=== PATIENT | female | born 1945 | race Caucasian/White ===

== ENCOUNTER 2021-12-28 13:29 | Inpatient (IN) | payer MEDICARE, MEDICAID, SELFPAY ==
[2021-12-28] VITALS (29 sets, daily range): BP systolic 57–117; BP diastolic 32–84; PULSE 58–130; RESP 11–23; TEMP 33.4–37.1; O2SAT 98–100; BMI 25.3
--- NOTE | ~2021-12-28 | CT_ITS ---
EXAMINATION: CT abdomen pelvis w con DATE: 12/28/2021 16:52 INDICATION: Diarrhea. TECHNIQUE: Computed tomography (CT) of the abdomen and pelvis was performed with 100 mL Omnipaque 350 intravenous contrast. Automated exposure control and iterative reconstruction technique were employe d. The dose-length product was 605.33 mGy-cm. COMPARISON: None. FINDINGS: The visualized portions of the lung bases demonstrate a small right pleural effusion. There is mild dependent atelectasis. The heart size is normal. There are coronary artery calcifications. T here are changes of coronary artery bypass grafting. There is a small sliding hiatal hernia. There is wall thickening of the distal esophagus. There is periportal edema in the liver. The gallbladder is distended and contains gallstones. The spleen is normal. There is widespread stranding of the intra-a bdominal fat and body wall fat, consistent with edema. The pancreas and adrenal glands are normal. Th ere are cysts in the kidneys measuring up to 2.2 cm in the left. The appendix is normal. There is wal l thickening of the transverse from the proximal transverse colon to the rectum, consistent with coli tis. There are no pathologically enlarged lymph nodes. There is a small volume of ascites. There is c alcified atherosclerosis of the aorta and many of the other arteries. There is severe stenosis of jarret iac axis. There is total occlusion of proximal superior mesenteric artery with reconstitution. There is moderate stenosis of the renal arteries. There is no significant stenosis of inferior mesenteric a rtery. There are old bilateral rib fractures. There is severe lumbar spondylosis and moderate thoraci c spondylosis. IMPRESSION: 1. Severe colitis from proximal transverse colon to the rectum. 2. 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 No signifi cant stenosis of inferior mesenteric artery. 3. Small volume of ascites. 4. Small right pleural effusion. 5. Small sliding hiatal hernia. Thickening of the distal esophagus may be edema or esophagitis. 6. Cholelithiasis. Gallbladder distention may be secondary to fasting or acute cholecystitis. Reviewed, dictated and finalized at location A. IMPRESSION: 1. Severe colitis from proximal transverse colon to the rectum. 2. Superior severe stenosis of celiac axis. Total occlusion of superior mesente linda artery. No significant stenosis of inferior mesenteric artery. 3. Small volume of ascites. 4. Small right pleural effusion. 5. Small sliding hiatal hernia. Thickening of the distal esophagus may be edema or esophagitis. 6. Cholelithiasis. Gallbladder distention may be secondary to fasting or acute cholecystitis.
--- NOTE | ~2021-12-28 | XR_ITS ---
EXAMINATION: XR chest port-a-cath/central DATE: 12/28/2021 18:47 INDICATION: Central line placement. TECHNIQUE: A single frontal view of the chest was obtained. COMPARISON: Chest single view at 1:50 PM, CT abdomen and pelvis 12/28/2021 FINDINGS: There is eventration of anterior right hemidiaphragm. There is a small right pleural effusi on. There is mild atelectasis in the midlung zones. No pneumothorax. The heart size is normal. Median sternotomy wires and mediastinal surgical clips are seen, likely from prior coronary artery bypass g rafting. A right internal jugular central venous catheter is seen with tip in the superior vena cava. 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 There are old healed bilateral rib fracture s. IMPRESSION: 1. Central line tip in superior vena cava. 2. Small right pleural effusion. 3. Mild atelectasis in the midlung zones. Reviewed, dictated and finalized at location A.
--- NOTE | ~2021-12-28 | XR_ITS ---
EXAMINATION: XR foot RT min 3V DATE: 12/28/2021 13:59 INDICATION: Right foot wound. TECHNIQUE: 3 views of right foot were obtained. COMPARISON: None. FINDINGS: There is old healed fracture deformity of neck of fifth metatarsal. Head of third metatarsa l is small, which may be an old healed fracture or surgical change. Head of third proximal phalanx is small, which may be an old healed fracture or surgical change. There is mild osteoarthritis of many of the interphalangeal joints and midfoot joints. There are 2 screws in medial malleolus. IMPRESSION: 1. Polyarticular osteoarthritis. Reviewed, dictated and finalized at location A.
--- NOTE | ~2021-12-28 | US_ITS ---
EXAMINATION: US arterial duplex LE DATE: 12/29/2021 08:25 INDICATION: Peripheral arterial disease. Nonhealing right foot wound. TECHNIQUE: Multiple grayscale and Doppler ultrasound images of the lower limb arteries were obtained. COMPARISON: None FINDINGS: Peak systolic velocity is 292 cm/s in right common femoral artery, 141 cm/s in proximal sup erficial femoral artery, 40 cm/s in profunda femoris, 37 cm/s in mid superficial femoral artery, 21 c m/s in distal superficial femoral artery, 16 cm/s in popliteal artery, and 31 cm/s in posterior tibia l artery. Flow is not detected in dorsalis pedis. Peak systolic velocity is 100 cm/s in left common femoral artery, 342 cm/s in proximal superficial fe moral artery, 86 cm/s in profunda femoris, 33 cm/s in mid superficial femoral artery, 44 cm/s in dist al superficial femoral artery, and 32 cm/s in popliteal artery. Arterial flow is not detected in post erior tibial artery or dorsalis pedis. IMPRESSION: 1. Increased velocity gradients involving right common femoral artery, right superficial femoral reji ry, and right profunda femoris, consistent with arterial occlusive disease. 2. Arterial flow not detected in right dorsalis pedis. 3. Increased velocity gradients in left superficial femoral artery, consistent with arterial occlusiv e disease. 4. Arterial flow not detected in left posterior tibial artery or dorsalis pedis. Reviewed, dictated and finalized at location A. IMPRESSION: 1. Increased velocity gradients involving right common femoral artery, right suggs perficial femoral artery, and right profunda femoris, consistent with arterial occlusive disease. 2. Arterial flow not detected in right dorsalis pedis. 3. Increased velocity gradients in left superficial femoral artery, consistent with arterial occlusive disease. 4. Arterial flow not detected in left posterior tibial artery or dorsalis pedis .
--- NOTE | ~2021-12-28 | CT_ITS ---
EXAMINATION: CT brain wo con DATE: 12/28/2021 16:52 INDICATION: Diarrhea. Weakness. Lactic acidosis. TECHNIQUE: Computed tomography (CT) of the head was performed without intravenous contrast. The dose- length product was 605.33 mGy-cm. Automated exposure control and iterative reconstruction technique w ere employed. COMPARISON: None FINDINGS: Chronic left temporal lobe infarction. Chronic right parietal-temporal lobe infarction with encephalomalacia. Generalized atrophy. No ventriculomegaly or midline shift. Basilar cisterns are pa tent. There are scattered moderate periventricular and subcortical white matter changes, most likely related to small vessel ischemic disease (microangiopathy). There is intracranial atherosclerosis. Th ere is a calcified extra-axial mass of the right frontal region measuring 1.8 x 0.9 cm, consistent wi th meningioma. Paranasal sinuses and mastoids are pneumatized. No depressed skull fractures. No acute infarction, hemorrhage or mass. IMPRESSION: 1. No acute intracranial abnormality. 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 3: Calcified extra-axial mass right frontal region, consistent with meningioma. 4: Chronic age-related findings. Reviewed, dictated and finalized at location B. IMPRESSION: 1. No acute intracranial abnormality. 2: Chronic bilateral infarctions involving the right parietal and bilateral tem poral lobes with associated encephalomalacia. 3: Calcified extra-axial mass right frontal region, consistent with meningioma. 4: Chronic age-related findings.
--- NOTE | ~2021-12-28 | XR_ITS ---
XR chest 1V portable 12/28/2021 13:59 Indication: Weakness. Procedure: AP portable chest Comparison: No prior studies for comparison. Findings: Status post median sternotomy for CABG. Osteopenia. Heart size normal. There is atheroscler osis of the aorta. No focal air space disease, pulmonary edema, pleural effusion or suspected pneumot horax. Impression: 1: No acute cardiopulmonary disease. Reviewed, dictated and finalized at location B. Impression: 1: No acute cardiopulmonary disease.
--- NOTE | ~2021-12-28 | XR_ITS ---
EXAMINATION: XR chest 1V portable DATE: 01/01/2022 08:48 INDICATION: Hypoxia TECHNIQUE: frontal view of the chest was obtained. COMPARISON: Chest radiograph dated 12/28/21 FINDINGS: Gradient of hazy airspace opacity throughout the right hemithorax and in the left lower lung zone wit h basilar predominance and obscuration of the diaphragm consistent with small left and moderate-sized right posterior layering pleural effusions. Increased interstitial pattern in the left mid to lower lung zone consistent with mild pulmonary edema. Consolidation at the bilateral lung bases which could represent associated atelectasis or pneumonia. No pneumothorax. Heart size is normal. Median sternot devonte wires and mediastinal surgical clips are seen, likely from prior coronary artery bypass grafting. Right internal jugular central venous catheter with distal tip at the caudal superior vena cava. The re is overriding of a chronic left clavicle fracture, unclear whether nonunited old malunited. There is callus formation about healing nondisplaced right seventh and eighth rib fractures. IMPRESSION: 1. Basilar predominant bilateral lung disease consistent with combination of pulmonary edema and atel ectasis although pneumonia not excludable. 2. Moderate-sized right and small left posteriorly layering pleural effusions. Reviewed, dictated and finalized at location A. IMPRESSION: 1. Basilar predominant bilateral lung disease consistent with combination of pu lmonary edema and atelectasis although pneumonia not excludable. 2. Moderate-sized right and small left posteriorly layering pleural effusions.
--- NOTE | 2021-12-28 13:45 | ECG_ITS ---
Measurements Intervals [place] Rate: 57 P: IN: 0 QRS: 79 QRSD: 155 T: 180 QT: 512 QTc: 501 Interpretive Statements ATRIAL FIBRILLATIONI WITH SLOW VENTRICULAR RESPONSE VENTRICULAR PREMATURE COMPLEX RIGHT BUNDLE BRANCH BLOCK LOW VOLTAGE- LIMB LEADS BASELINE ARTIFACT- V6 ABNORMAL ECG NO PREVIOUS ECG AVAILABLE FOR COMPARISON Electronically Signed On 12-28-2021 15:44:42 CDT by Floyd Valera D.O.
--- NOTE | 2021-12-28 14:19 | PC.NURSE ---
lidia hugger and fluid warmer applied to pt at this time.
[2021-12-28] MEDS: SODIUM CHLORIDE 0.9% IV 1,000 ML 999 ML IV CONT ×2 (14:44→14:45)
--- NOTE | 2021-12-28 14:46 | PC.NURSE ---
new temp arthur cath placed. scant amount of urine came out at this time.
[2021-12-28 14:48] LABS: Basophils Absolute Auto 0.1 K/mm3 (0.0-0.1); Basophils Percent Auto 0.3 % (0.2-1.2); Eosinophils Percent Auto 0.2 % (0-4.4); Hematocrit 31.8 % (37.0-47.0); Hemoglobin 9.9 g/dL (12.0-15.0); Immature Granulocyte Absolute 0.92 K/mm3 (0.00-0.031); Lymphocytes Percent Auto 7.4 % (18.3-44.2); Mean Corpuscular HGB Conc 31.1 g/dl (32-36); Mean Corpuscular Volume 93.3 fl (80-100); Mean Platelet Volume 11.1 fl (7.4-10.4); Monocytes Absolute Auto 0.7 K/mm3 (0.1-0.6); Monocytes Percent Auto 3.1 % (2.6-8.5); Neutrophils Absolute Auto 19.6 K/mm3 (1.3-6.7); Nucleated Red Blood Cells Perc 0.1 % (0.0-0.2); Platelet Count Result 312 k/mm3 (150-375); Red Blood Count 3.41 M/mm3 (4.2-5.4); Red Cell Distribution Width 18.7 % (11.5-14.5); White Blood Count 23.1 K/mm3 (4.5-10.0)
[2021-12-28 14:58] LABS: Glucose Point of Care 172 mg/dl (65-105)
[2021-12-28 14:58] LABS: INR 1.3; Platelet Estimate Adequate (Adequate); Prothrombin Time 15.8 Seconds (11.1-14.7)
[2021-12-28 14:59] LABS: Burr Cells 1+ (NORMAL); Ovalocytes 1+ (NORMAL); Partial Thromboplastin Time 29.8 SECONDS (22.3-36.8); Schistocytes None Seen (NORMAL)
[2021-12-28] MEDS: SODIUM CHLORIDE 0.9% IV 500 ML 999 ML IV CONT (15:00)
[2021-12-28 15:02] LABS: Lactic Acid Reflex 4.9 mmol/L (0.7-2.0)
[2021-12-28 15:03] LABS: Alanine Aminotransferase 16 U/L (6-35); Albumin Level 1.6 g/dL (3.5-5.1); Alkaline Phosphatase 67 U/L (38-126); Anion Gap 7 mmol/L (8-16); Aspartate Amino Transferase 17 U/L (14-36); Bilirubin,Total 0.2 mg/dL (0.2-1.3); Blood Urea Nitrogen 29 mg/dL (7-17); CRP 3.3 mg/dL (<1.0); Calcium 7.1 mg/dL (8.4-10.2); Carbon Dioxide 17 mmol/L (22-30); Chloride 118 mmol/L (98-107); Estimated CRCL calculation 39 ml/min; Estimated Glomerular Filt Rate 54; Glucose 182 mg/dL (65-110); Lipase 18 U/L (23-300); Potassium 3.2 mmol/L (3.4-5.0); Sodium 142 mmol/L (137-145)
[2021-12-28 15:12] LABS: Troponin I 0.012 ng/mL (0.000-0.034)
[2021-12-28 15:18] LABS: Appearance Urine Cloudy (Clear); Bilirubin Urine 1+ (Negative); Blood Urine 3+ (Negative); Color Urine Yellow (Yellow); Glucose Urine UA Negative (Negative); Ketones Urine Trace mg/dL (Negative); Leukocyte Esterase Ur 1+ LEU/UL (Negative); Nitrate Urine Negative (Negative); Protein Urine 3+ mg/dL (Negative); Urobilinogen Urine 0.2 mg/dL (<2.0); pH Urine 5.5 (5.0-9.0)
[2021-12-28 15:25] LABS: Amorphous Sediment Urine Few; Bacteria Urine 1+ /hpf; Hyaline Casts Urine 20-29 /lpf; Mucus Urine Moderate /lpf; RBC Urine >75 /hpf (0-2); Squamous Epithelial Cell Urine Moderate /hpf (Few); WBC Urine >75 /hpf
[2021-12-28] MEDS: SODIUM CHLORIDE 0.9% IV 1,000 ML 150 ML IV CONT (15:25)
[2021-12-28 15:26] LABS: Add Urine Microscopic? YES; SARS-CoV-2 RNA PCR Negative
[2021-12-28] MEDS: DOPamine 400 MG/D5W 250 ML 400 MG/250 ML BAG 5.18 MG IV CONT (15:43)
[2021-12-28 16:22] LABS: Toxigenic C. Diff POSITIVE (NEGATIVE)
--- NOTE | 2021-12-28 17:10 | PC.NURSE ---
Pt sons at bedside at this time, Dr. Frazier discussed care of pt with them. They have decided to proceed with central line.
[2021-12-28 17:45] LABS: Reflex Lactic Acid Yes or No Add Lactic
[2021-12-28 19:06] LABS: Lactic Acid 2.5 mmol/L (0.7-2.0)
[2021-12-28] MEDS: NOREPINEPHRINE 8 MG/D5W 250 ML 8 MG/250 ML BAG 9.38 MG IV CONT (19:24)
--- NOTE | 2021-12-28 20:25 | PM.IMHP ---
H&P: HPI History of Present Illness Date/Time: 12/28/21 1830 Chief Complaint: Diarrhea Narrative: This is a 76-year-old female patient who comes [place] [facility] with complaints of [place]. [place] [facility] [place] she had stool cultures obtained on 11/13/2021 due to her diarrhea. After reviewing her information from the [place] [facility] [place], it was noted that patient has failure to thrive. Today the patient was found with low blood pressure. She has decreased oral intake and weight loss. The patient also was recently treated with antibiotics at [facility] for UTI. It looks like it may have been in October. Her white blood cell Count was noted to be 23.1 today with Her H&H is 9.9 and 31.8. Her lactic was 4.9 and has come down to 2.5. Glucose is 172 GFR is noted to be 54. Lipase is normal C reactive protein is 3.3. Urine was found be cloudy 3+ protein, 3+ blood, urine bilirubin 1+, leukocyte esterase 1+, rbc's greater than 75, wbc's greater than 75, moderate amount of a squamous epithelial cells. Urine bacteria is +1. She was negative for COVID and was positive for C diff. patient was given IV fluids, dopamine, Zosyn, Levophed, and vancomycin. A central line was placed in the emergency room as the patient has sepsis. Chest x-ray was read as central line tip in superior vena cava. Small right pleural effusion. Mild atelectasis in the mid lung zone. Abdominal pelvis CT was read as the following 1. Severe colitis from proximal transverse colon to the rectum. 2. 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 No significant stenosis of inferior mesenteric artery. 3. Small volume of ascites. 4. Small right pleural effusion. 5. Small sliding hiatal hernia. Thickening of the distal esophagus may be edema or esophagitis. 6. Cholelithiasis. Gallbladder distention may be secondary to fasting or acute cholecystitis. Head CT was read as no acute intracranial abnormality. 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 Calcified extra-axial mass right frontal region consistent with meningioma. Chronic age-related findings. The right lower extremity has exposed bone and Achilles tendon. Her foot x-ray was read as poly articular osteoarthritis. There are 2 screws in medial malleolus. Patient has muscle wasting to the right lower extremity. Chest x-ray was read as no acute cardiopulmonary disease. Surgery has been consulted for right lower extremity wound. Geological Sample Tester has been consulted and agrees to admission to ICU. Blood cultures are pending. The patient is under a warming blanket. The patient is being admitted to inpatient status to ICU on the date of service as 12/28/2021. Review of Systems Review of Systems: The patient is unable to answer questions and is moaning out at times. All systems reviewed & are unremarkable except as noted in HPI and below Constitutional: Constitutional: Reports as per HPI and Reports no additional constitutional complaints Eyes: Eyes: Reports as per HPI and Reports no additional eye complaints ENT: Reports system reviewed and no additional complaints, except as documented and Reports Normal hearing present Cardiovascular: Cardiovascular: Reports no additional cardiovascular complaints Respiratory: Respiratory: Reports no additional respiratory complaints and Reports no additional respiratory complaints Gastrointestinal: Gastrointestinal: Reports as per HPI and Reports no additional gastrointestinal complaints Musculoskeletal: Musculoskeletal: Reports no additional musculoskeletal complaints Integumentary/Breasts: Skin/Breast: Reports system reviewed and no additional complaints, except as docu and Reports as per HPI Neurologic: Reports system reviewed and no additional complaints, except as documented, Reports as per HPI and Reports Normal hearing present Psychiatric: Psychiatric:
--- NOTE | 2021-12-28 20:51 | ADMGEN ---
This patient, Acacia Turner, was admitted to Intensive Care Unit-7 at 1943. Patient/family oriented to hospital policies and general routines including ID bracelet, bed and alarms, visiting hours, pain management, procedures, bathroom and other care routines, personal items, smoking policy, room service/diet, and visiting hours. Information on how to activate the Rapid Response Team has been discussed. Patient/Family are encouraged to report perceived risks to care and to ask questions if they do not understand what they are told or what they should do.
[2021-12-28] MEDS: CENTRAL LINE FLUSH 10 ML IV PUSH (21:06)
--- NOTE | 2021-12-28 21:48 | ED.GENADULT ---
HPI - General Adult General Chief complaint: Altered Mental Status Stated complaint: altered LOC Time Seen by Provider: 12/28/21 13:38 Source: family (over the phone), EMS and RN notes reviewed Mode of arrival: EMS Limitations: altered mental status and clinical condition History of Present Illness HPI narrative: This is a 76 year old female with history of dementia, atrial fibrillation, chronic ulcers who presents for evaluation of hypotension and unresponsiveness. EMS reports they were called to intermediate for possible cardiac arrest. It is reported that patient was being lifted into bed and she went unresponsive. They believe she may have stopped breathing for 30 seconds. It does not sound as if CPR was started. On EMS arrival, patient was responsive to pain and breathing. They also states that patient had large episode of during during this time. She was hypotensive with BP in 60s and they started her on IV fluids. EMS has given patient 300 ml fluid so far. Patient's son states that patient has nonhealing wound to right posterior lower leg for a couple of months. She has been admitted to [facility] for IV antibiotics and her last hospitalization was 3 weeks ago. Both sons report they do not wish for patient to be intubated or CPR performed. Related Data Home Medications Medication Instructions Recorded Confirmed amiodarone 200 mg tablet mg 12/28/21 ascorbic acid (vitamin C) 500 mg 500 mg PO BID 12/28/21 12/28/21 tablet (Vitamin C) cholecalciferol (vitamin D3) 10 10 mcg PO DAILY 12/28/21 12/28/21 mcg (400 unit) capsule (Vitamin D3) clopidogrel 75 mg tablet 75 mg PO DAILY 12/28/21 12/28/21 metoprolol tartrate 25 mg tablet 25 mg PO BID 12/28/21 12/28/21 metronidazole 500 mg tablet 500 mg PO Q8H 12/28/21 12/28/21 potassium chloride 20 mEq 20 meq PO DAILY 12/28/21 12/28/21 tablet,extended release Allergies Allergy/AdvReac Type Severity Reaction Status Date / Time No Known Allergies Allergy Verified 12/28/21 15:17 Review of Systems Review of Systems: ROS unobtainable: Yes unobtainable due to medical condition and unobtainable due to mental status PMFSH Past Medical History Medical History Anxiety Atrial fibrillation Dementia Diabetes mellitus HTN (hypertension), malignant Surgical History Surgical History S/P ORIF (open reduction internal fixation) fracture right ankle Family History Family History Other Unknown family medical history Social History Social History (Updated 12/28/21 @ 21:23 by Noris Camp NP) Social History: The patient is from [facility]. Her son Morgan and Fernando Cortez are listed as her power game trapper. The patient is listed as a modified code. She is and retired. Smoking status unknown. Code status modified DNI. Alcohol intake: unknown Substance use: unknown Spiritual care concerns: No Exam Const: General: ill appearing acutely Limitations: altered mental status HENMT: Head: normal to inspection Face and sinus: normal facial exam Mouth: Yes dry mucous membranes Other: endentulous Eyes: Pupils: Equal, round and reactive pupils present EOM: EOMs intact bilaterally Resp: Effort & Inspection: normal respiratory effort Auscultation: clear to auscultation bilaterally Cardio: Rate: regular rate Rhythm: abnormal rhythm Heart sounds: no murmurs GI: GI Palp: Yes Soft to palpation, No Tenderness to palpation present (GI), No Guarding due to palpation present (GI) and No Rigid due to palpation Auscultation: normal bowel sounds Other: large amount of diarrhea in diaper Skin: Wounds: wounds noted Other: there is small wound to left hip, 3 cm no drainage there is large approximately 20 cm wound to right posterior lower leg with exposed achil
[2021-12-28] MEDS: metroNIDAZOLE 500 MG/ISO 100ML 500 MG/100 ML BAG 100 MG IVPB (22:02)
[2021-12-28] MEDS: PANTOPRAZOLE SODIUM IV 40 MG VIAL IV PUSH (22:03)
[2021-12-28] MEDS: DIGOXIN INJ 250 MCG/ML 2 ML AMP (*BKC) 500 MCG IV PUSH (22:07)
[2021-12-28 23:15] LABS: Lactic Acid Reflex 2.1 mmol/L (0.7-2.0)
[2021-12-29] VITALS (36 sets, daily range): BP systolic 81–137; BP diastolic 46–96; PULSE 75–112; RESP 12–20; TEMP 35.2–36.6; O2SAT 98–100
[2021-12-29] MEDS: ALBUMIN HUMAN 25% 25 GM/100 ML 100 ML IVPB ×4 (00:35→17:31)
[2021-12-29] MEDS: INSULIN ASPART (*BKC) 100 UNITS/ML SUB-Q ×4 (00:35→17:34)
[2021-12-29 01:09] LABS: Glucose Point of Care 222 mg/dl (65-105)
[2021-12-29] MEDS: SODIUM BICARBONATE 8.4% 50 MEQ/50 ML SYRINGE IV PUSH (01:21)
[2021-12-29] MEDS: SODIUM BICARBONATE 8.4% 150 MEQ in DEXTROSE 5% 1,000 ML 950 ML 100 MEQ IV CONT ×2 (02:04→12:29)
[2021-12-29] MEDS: KCL 40 MEQ/WATER 100 ML 100 ML 25 ML IVPB (02:04)
[2021-12-29] MEDS: NOREPINEPHRINE 8 MG/D5W 250 ML 8 MG/250 ML BAG 37.5 MG IV CONT (02:05)
[2021-12-29] MEDS: CENTRAL LINE FLUSH 10 ML IV PUSH ×4 (04:40→21:41)
[2021-12-29] MEDS: metroNIDAZOLE 500 MG/ISO 100ML 500 MG/100 ML BAG 100 MG IVPB ×3 (05:56→21:39)
[2021-12-29 06:00] LABS: Hematocrit 31.4 % (37.0-47.0); Hemoglobin 9.9 g/dL (12.0-15.0); Mean Corpuscular HGB Conc 31.5 g/dl (32-36); Mean Corpuscular Hemoglobin 28.9 pg (26-34); Mean Corpuscular Volume 91.8 fl (80-100); Mean Platelet Volume 11.2 fl (7.4-10.4); Platelet Count Result 390 k/mm3 (150-375); Red Blood Count 3.42 M/mm3 (4.2-5.4); Red Cell Distribution Width 19.2 % (11.5-14.5); White Blood Count 32.3 K/mm3 (4.5-10.0)
[2021-12-29 06:07] LABS: Lactic Acid Reflex 1.5 mmol/L (0.7-2.0)
[2021-12-29 06:08] LABS: Alanine Aminotransferase 13 U/L (6-35); Alkaline Phosphatase 70 U/L (38-126); Anion Gap 7 mmol/L (8-16); Aspartate Amino Transferase 19 U/L (14-36); Bilirubin,Total 0.4 mg/dL (0.2-1.3); Blood Urea Nitrogen 28 mg/dL (7-17); Calcium 7.1 mg/dL (8.4-10.2); Carbon Dioxide 19 mmol/L (22-30); Chloride 115 mmol/L (98-107); Estimated CRCL calculation 43 ml/min; Estimated Glomerular Filt Rate > 60; Glucose 314 mg/dL (65-110); Potassium 3.3 mmol/L (3.4-5.0); Sodium 141 mmol/L (137-145)
[2021-12-29 07:03] LABS: Platelet Estimate Increased (Adequate)
[2021-12-29 07:05] LABS: Band Neutrophils Percent 24 % (0-6); Lymphocytes Absolute Manual 0.64 K/mm3 (1.1-4.5); Lymphocytes Percent Manual 2 % (18-44); Neutrophils Absolute Manual 31.65 K/mm3 (1.7-7.2); Neutrophils Percent Manual 74 % (46-73)
[2021-12-29 07:06] LABS: Anisocytosis 1+ (NORMAL)
[2021-12-29 07:08] LABS: Burr Cells 1+ (NORMAL); Schistocytes None Seen (NORMAL)
[2021-12-29 07:16] LABS: Hemoglobin A1C 5.2 % (<5.7)
[2021-12-29 07:53] LABS: Free T4 Free Thyroxine Reflex 2.27 ng/dL (0.78-2.19)
[2021-12-29] MEDS: ENOXAPARIN 40 MG/0.4 ML SYRINGE SUB-Q (08:47)
[2021-12-29] MEDS: PANTOPRAZOLE SODIUM IV 40 MG VIAL IV PUSH ×2 (08:47→21:42)
--- NOTE | 2021-12-29 09:02 | PM.CNGS ---
Assessment and Plan Assessment and plan (1) Septic shock due to Clostridioides difficile: Code(s): A41.4 - Sepsis due to anaerobes; R65.21 - Severe sepsis with septic shock Status: Acute Assessment and Plan: cont supportive care per ICU team, abx to treat severe CDiff infection, serial exams, pt is a poor surgical candidate History of Present Illness Consult details Consult date: 12/29/21 Reason for consult: abdominal pain Requesting physician: Keyona Bagley DO Narrative: The pt is a 76 y/o F c multiple med issues presenting from [facility] in septic shock. Pt is very lethargic and confused and all history obtained via chart. Pt apparently was treated for UTI at OSH is the last few mos. Pt noted to have worsening MS at [facility]. Pt c/o abd pain and diarrhea over last wk. Pt found to be quite hypotensive. Review of Systems Review of Systems: ROS unobtainable: Yes unobtainable due to mental status PMFSH Past Medical History Medical History Anxiety Atrial fibrillation Dementia Diabetes mellitus HTN (hypertension), malignant Surgical History Surgical History S/P ORIF (open reduction internal fixation) fracture right ankle Family History Family History Other Unknown family medical history Social History Social History Social History: The patient is from [facility]. Her son Morgan and Fernando Cortez are listed as her power deputy commonwealth's attorney. The patient is listed as a modified code. She is and retired. Smoking status unknown. Code status modified DNI. Alcohol intake: unknown Substance use: unknown Spiritual care concerns: No Meds Home Medications and Allergies Home Medications Medication Instructions Recorded Confirmed Type amiodarone 200 mg tablet 200 mg PO DAILY 12/28/21 12/29/21 History ascorbic acid (vitamin C) 500 mg 500 mg PO BID 12/28/21 12/28/21 History tablet (Vitamin C) cholecalciferol (vitamin D3) 10 50 mcg PO DAILY 12/28/21 12/29/21 History mcg (400 unit) capsule (Vitamin D3) clopidogrel 75 mg tablet 75 mg PO DAILY 12/28/21 12/28/21 History metoprolol tartrate 25 mg tablet 25 mg PO BID 12/28/21 12/28/21 History metronidazole 500 mg tablet 500 mg PO Q8H 12/28/21 12/28/21 History potassium chloride 20 mEq 20 meq PO DAILY 12/28/21 12/28/21 History tablet,extended release Lactobacillus acidophilus 200 mg PO BID 12/29/21 12/29/21 History aspirin 81 mg tablet 81 mg PO DAILY 12/29/21 12/29/21 History Allergies Allergy/AdvReac Type Severity Reaction Status Date / Time No Known Allergies Allergy Verified 12/28/21 15:17 Vital Signs Vital Signs - 24 hr 12/28/21 13:28 12/28/21 14:19 12/28/21 13:45 Temperature 34.5 C L 33.4 C L Pulse Rate 66 64 Respiratory Rate 23 H 15 Blood Pressure 57/36 L 63/41 L Pulse Oximetry 100 98 Oxygen Delivery Room Air 12/28/21 14:40 12/28/21 14:15 12/28/21 14:51 Temperature 33.9 C L Pulse Rate 59 L 64 58 L Respiratory Rate 18 18 Blood Pressure 84/48 L 74/47 L Pulse Oximetry 100 100 Oxygen Delivery 12/28/21 14:30 12/28/21 14:00 12/28/21 15:43 Temperature Pulse Rate 73 67 68 Respiratory Rate 20 18 Blood Pressure 109/56 L 101/45 L 65/32 L Pulse Oximetry 100 100 Oxygen Delivery 12/28/21 15:51 12/28/21 15:53 12/28/21 15:58 Temperature 34.7 C L Pulse Rate 69 Respiratory Rate 17 Blood Pressure 63/37 L 63/37 L 62/48 L Pulse Oximetry 100 Oxygen Delivery 12/28/21 16:07 12/28/21 16:24 12/28/21 17:23 Temperature 34.9 C L 35.1 C L Pulse Rate 79 103 H 130 H Respiratory Rate 13 11 L Blood Pressure 62/48 L 97/68 L Pulse Oximetry 100 100 Oxygen Delivery 12/28/21 15:16 12/28/21 16:31 12/28/21 17:16 Temperature 34.5 C L 35.2 C L 35.8 C L Pulse Ra
[2021-12-29 10:21] LABS: Magnesium 1.8 mg/dL (1.6-2.3)
[2021-12-29] MEDS: NOREPINEPHRINE 8 MG/D5W 250 ML 8 MG/250 ML BAG 26.25 MG IV CONT (10:25)
[2021-12-29 13:01] LABS: Glucose Point of Care 307 mg/dl (65-105)
--- NOTE | 2021-12-29 13:37 | WPDCNINT ---
Assessment and Plan Assessment and plan (1) Septic shock: Code(s): A41.9 - Sepsis, unspecified organism; R65.21 - Severe sepsis with septic shock Status: Acute Assessment and Plan: Patient presented with altered mental status, hypotension, likely related to C diff colitis, UTI -patient was adequately fluid-resuscitated in the ER, right IJ central line was inserted -patient remains on Levophed , maintain MAP > 65 mmHg -continue maintenance IV fluids, currently on sodium bicarbonate infusion, will continue -lactic acid has normalized -continue Flagyl, cefepime and vancomycin -blood and urine cultures have been obtained and pending (2) UTI (urinary tract infection): Code(s): N39.0 - Urinary tract infection, site not specified Status: Acute Assessment and Plan: Urine cultures have been obtained and pending, continue antibiotics as above (3) C. difficile colitis: Code(s): A04.72 - Enterocolitis due to Clostridium difficile, not specified as recurrent Status: Acute Assessment and Plan: Continue Flagyl, May need to drop an NG tube and start p.o. vancomycin (4) Dementia: Code(s): F03.90 - Unspecified dementia, unspecified severity, without behavioral disturbance, psychotic disturbance, mood disturbance, and anxiety Status: Acute Assessment and Plan: Discussed with 2 sons at bedside, they do agree that patient has severe dementia, status stated that she was admitted [facility] of couple of months ago for her lower extremity wound, doctors over there were talking about amputation, she may not be a candidate according the doctors. The doctors at [facility] did discuss with the sons regarding hospice care, also discussed with them regarding hospice care and the open to meet with the hospice nurse on 12/30/2021 or 12/31/2021 The sons also mentioned that the patient has had decreased oral intake due to her dementia. (5) Diabetes mellitus: Code(s): E11.9 - Type 2 diabetes mellitus without complications Status: Acute Assessment and Plan: Continue Accu-Cheks and sliding scale insulin (6) Wound of lower extremity: Code(s): S81.809A - Unspecified open wound, unspecified lower leg, initial encounter Status: Acute Assessment and Plan: Wounds been consulted -says he also consulted for the right lower extremity wound (7) HTN (hypertension), malignant: Code(s): I10 - Essential (primary) hypertension Status: Acute Assessment and Plan: Hold all antihypertensives as patient is on pressors (8) Atrial fibrillation: Code(s): I48.91 - Unspecified atrial fibrillation Status: Acute Assessment and Plan: Currently rate controlled, if she goes into AFib RVR will start amiodarone infusion Plan DVT prophylaxis: Lovenox Stress ulcer prophylaxis: Protonix Nutrition: NPO for now Discuss with 2 sons at bedside, updated them with patient's condition and plan of care. I discussed with them regarding her colitis, urinary tract infection, has septic shock and that she is requiring high dose of Levophed. They are willing to meet with hospice nurses on 12/30/2021 or 12/31/2021. Code Status: Do not resuscitate, do not intubate, okay for vasopressors central line Critical Care Time Spent: 49 minutes Due to a high probability of clinically significant, life threatening deterioration, the patient required my highest level of preparedness to intervene emergently and I personally spent this critical care time directly and personally managing the patient. This critical care time included obtaining a history; examining the patient; pulse oximetry; ordering and review of studies; arranging urgent treatment with development of a management plan; evaluation of patient's response to treatment; frequent reassessment; and discussions with other providers. It was exclusive of separately billable procedures and treating othe
--- NOTE | 2021-12-29 17:03 | PM.IMPN ---
Progress Note: A&P Assessment and Plan (1) Septic shock: Code(s): A41.9 - Sepsis, unspecified organism; R65.21 - Severe sepsis with septic shock Status: Acute Assessment and Plan: Appreciate critical care management, severe, secondary to C diff colitis Current we on Levophed, Flagyl, cefepime, vancomycin Blood and urine cultures pending IV fluids with bicarb on board (2) UTI (urinary tract infection): Code(s): N39.0 - Urinary tract infection, site not specified Status: Acute Assessment and Plan: Urine cultures have been obtained and pending, continue antibiotics as above (3) C. difficile colitis: Code(s): A04.72 - Enterocolitis due to Clostridium difficile, not specified as recurrent Status: Acute Assessment and Plan: Continue Flagyl, May need to drop an NG tube and start p.o. vancomycin (4) Dementia: Code(s): F03.90 - Unspecified dementia, unspecified severity, without behavioral disturbance, psychotic disturbance, mood disturbance, and anxiety Status: Acute Assessment and Plan: Recommend hospice care, family considering (5) Diabetes mellitus: Code(s): E11.9 - Type 2 diabetes mellitus without complications Status: Acute Assessment and Plan: Continue Accu-Cheks and sliding scale insulin (6) Wound of lower extremity: Code(s): S81.809A - Unspecified open wound, unspecified lower leg, initial encounter Status: Acute Assessment and Plan: Appreciate general surgery consultation, patient not a candidate for debridement or amputation (7) HTN (hypertension), malignant: Code(s): I10 - Essential (primary) hypertension Status: Acute Assessment and Plan: Hold all antihypertensives as patient is on pressors (8) Atrial fibrillation: Code(s): I48.91 - Unspecified atrial fibrillation Status: Acute Assessment and Plan: Currently rate controlled, if she goes into AFib RVR will start amiodarone infusion Plan DVT prophylaxis with SCDs GI prophylaxis not indicated Code status modified code, DNR/DNI, family okay with medications and pressors Subjective Date/time seen: 12/29/21 17:03 Interval history: Patient is essentially nonverbal, non communicative. No overnight events noted. No chest pain or shortness of breath. No nausea, vomiting or diarrhea. No fevers or chills. Review of Systems Review of Systems: ROS unobtainable: Yes unobtainable due to mental status Exam Narrative: General: No acute distress, essentially unresponsive HEENT: Atraumatic, normocephalic, mucous membranes moist CV: Regular rate and rhythm, S1, S2 Lungs: Clear to auscultation bilaterally, no rales or crackles noted, no wheezes, good air entry Abdomen: Soft, nontender, nondistended Extremities: Severe necrotic wound of lower extremity noted, does not appear infected, pink granulation tissue around the edges of wound, exposed muscle and bone noted, no purulence Objective Data Vital Signs Vital Signs: Vital Signs - 24 hr 12/28/21 17:23 12/28/21 17:16 12/28/21 18:46 Temperature 96.4 F L 97.9 F Pulse Rate 130 H 117 H Respiratory Rate 15 Blood Pressure 99/51 L Pulse Oximetry 99 Oxygen Delivery 12/28/21 17:46 12/28/21 18:01 12/28/21 19:24 Temperature 96.9 F L 97.2 F L Pulse Rate 120 H 128 H Respiratory Rate 14 14 Blood Pressure 104/64 96/54 L 109/68 Pulse Oximetry 100 100 Oxygen Delivery 12/28/21 19:51 12/28/21 18:48 12/28/21 20:49 Temperature 98.3 F Pulse Rate 120 H 126 H Respiratory Rate 18 15 Blood Pressure 117/84 109/68 106/74 Pulse Oximetry 100 100 Oxygen Delivery 12/28/21 20:43 12/28/21 22:07 12/28/21 22:00 Temperature 98.7 F Pulse Rate 77 111 H 86 Respiratory Rate 16 Blood Pressure 88/51 L Pulse Oximetry 100 Oxygen Delivery 12/28/21 22:00 12/28/21 23:12 12/29/21 00:36 Temperature 97.2 F L Pulse Rate 86 86 1
[2021-12-29 17:43] LABS: Glucose Point of Care 247 mg/dl (65-105)
[2021-12-29] MEDS: TOLNAFTATE 1% POWDER 45 GM BTL 1 APPLIC TOPICAL (21:39)
[2021-12-29] MEDS: NOREPINEPHRINE 8 MG/D5W 250 ML 8 MG/250 ML BAG 18.75 MG IV CONT (21:39)
[2021-12-30] VITALS (22 sets, daily range): BP systolic 88–170; BP diastolic 47–101; PULSE 62–106; RESP 11–22; TEMP 35.8–36.8; O2SAT 93–100
[2021-12-30] MEDS: ALBUMIN HUMAN 25% 25 GM/100 ML 100 ML IVPB ×4 (01:25→17:38)
[2021-12-30 01:47] LABS: Glucose Point of Care 139 mg/dl (65-105)
[2021-12-30] MEDS: SODIUM BICARBONATE 8.4% 150 MEQ in DEXTROSE 5% 1,000 ML 950 ML 100 MEQ IV CONT (02:02)
[2021-12-30] MEDS: CENTRAL LINE FLUSH 10 ML IV PUSH ×4 (03:43→21:53)
[2021-12-30] MEDS: metroNIDAZOLE 500 MG/ISO 100ML 500 MG/100 ML BAG 100 MG IVPB ×3 (06:20→21:53)
[2021-12-30 06:29] LABS: Basophils Percent Auto 0.1 % (0.2-1.2); Eosinophils Absolute Auto 0.2 K/mm3 (0-0.3); Eosinophils Percent Auto 1.5 % (0-4.4); Hematocrit 24.7 % (37.0-47.0); Hemoglobin 7.9 g/dL (12.0-15.0); Immature Granulocyte Absolute 0.19 K/mm3 (0.00-0.031); Immature Granulocyte Percent A 1.2 % (0-0.5); Lymphocytes Absolute Auto 2.13 K/mm3 (0.9-3.2); Lymphocytes Percent Auto 13.7 % (18.3-44.2); Mean Corpuscular Hemoglobin 29.5 pg (26-34); Mean Corpuscular Volume 92.2 fl (80-100); Mean Platelet Volume 10.9 fl (7.4-10.4); Monocytes Absolute Auto 0.6 K/mm3 (0.1-0.6); Monocytes Percent Auto 3.6 % (2.6-8.5); Neutrophils Absolute Auto 12.4 K/mm3 (1.3-6.7); Neutrophils Percent Auto 79.9 % (45.5-73.1); Platelet Count Result 260 k/mm3 (150-375); Red Blood Count 2.68 M/mm3 (4.2-5.4); Red Cell Distribution Width 19.1 % (11.5-14.5); White Blood Count 15.5 K/mm3 (4.5-10.0)
[2021-12-30 06:42] LABS: Ammonia < 9 umol/L (9-30); INR 1.9; Prothrombin Time 21.1 Seconds (11.1-14.7)
[2021-12-30 06:43] LABS: Lactic Acid Reflex 2.6 mmol/L (0.7-2.0); Partial Thromboplastin Time 41.9 SECONDS (22.3-36.8)
[2021-12-30 06:50] LABS: Alanine Aminotransferase 11 U/L (6-35); Albumin Level 2.3 g/dL (3.5-5.1); Alkaline Phosphatase 36 U/L (38-126); Anion Gap 5 mmol/L (8-16); Aspartate Amino Transferase 12 U/L (14-36); Bilirubin,Total 0.4 mg/dL (0.2-1.3); Blood Urea Nitrogen 22 mg/dL (7-17); Carbon Dioxide 26 mmol/L (22-30); Chloride 111 mmol/L (98-107); Estimated CRCL calculation 48 ml/min; Estimated Glomerular Filt Rate > 60; Glucose 154 mg/dL (65-110); Magnesium 1.7 mg/dL (1.6-2.3); Phosphorus 2.3 mg/dL (2.5-4.5); Potassium 2.1 mmol/L (3.4-5.0); Sodium 142 mmol/L (137-145)
[2021-12-30 08:00] LABS: Lipase < 10 U/L (23-300)
[2021-12-30 09:25] LABS: Reflex Lactic Acid Yes or No Add Lactic
[2021-12-30] MEDS: LACTATED RINGERS 1,000 ML 75 ML IV CONT (09:51)
[2021-12-30] MEDS: KCL 40 MEQ/WATER 100 ML 100 ML 25 ML IVPB ×2 (09:51→17:38)
[2021-12-30] MEDS: MAGNESIUM SULF 2 GM/WATER 50ML 2 GM/50 ML BAG IVPB (09:51)
[2021-12-30] MEDS: PANTOPRAZOLE SODIUM IV 40 MG VIAL IV PUSH ×2 (09:53→21:52)
[2021-12-30] MEDS: TOLNAFTATE 1% POWDER 45 GM BTL 1 APPLIC TOPICAL ×2 (09:53→21:52)
[2021-12-30] MEDS: ENOXAPARIN 40 MG/0.4 ML SYRINGE SUB-Q (09:53)
[2021-12-30 10:36] LABS: Lactic Acid 1.9 mmol/L (0.7-2.0)
--- NOTE | 2021-12-30 10:54 | WPDINTPN ---
Progress Note: A&P Assessment and Plan (1) Septic shock: Code(s): A41.9 - Sepsis, unspecified organism; R65.21 - Severe sepsis with septic shock Status: Acute Assessment and Plan: Patient presented with altered mental status, hypotension, likely related to C diff colitis, UTI -patient was adequately fluid-resuscitated in the ER, right IJ central line was inserted -patient remains on Levophed , maintain MAP > 65 mmHg -continue maintenance IV fluids, currently on sodium bicarbonate infusion, will continue -lactic acid has normalized -12/28/2021, blood cultures: Preliminary results are negative x2 -12/28/2021: Stool cultures -12/28/2021: Urine culture growing Klebsiella pneumoniae ESBL, susceptible to imipenem only -will stop cefepime, started imipenem on 12/30/2021 -continue vancomycin and Flagyl (12/29) (2) UTI (urinary tract infection): Code(s): N39.0 - Urinary tract infection, site not specified Status: Acute Assessment and Plan: 12/28/2021: Urine cultures growing ESBL Klebsiella pneumonia, susceptible to imipenem only -antibiotics have been switched as above (3) C. difficile colitis: Code(s): A04.72 - Enterocolitis due to Clostridium difficile, not specified as recurrent Status: Acute Assessment and Plan: Continue Flagyl, -Levophed being weaned -surgery following the patient, no intervention at this time (4) Dementia: Code(s): F03.90 - Unspecified dementia, unspecified severity, without behavioral disturbance, psychotic disturbance, mood disturbance, and anxiety Status: Acute Assessment and Plan: Discussed with 2 sons at bedside, they do agree that patient has severe dementia, status stated that she was admitted [facility] of couple of months ago for her lower extremity wound, doctors over there were talking about amputation, she may not be a candidate according the doctors. The doctors at [facility] did discuss with the sons regarding hospice care, also discussed with them regarding hospice care and the open to meet with the hospice nurse on 12/30/2021 or 12/31/2021 The sons also mentioned that the patient has had decreased oral intake due to her dementia. (5) Diabetes mellitus: Code(s): E11.9 - Type 2 diabetes mellitus without complications Status: Acute Assessment and Plan: Continue Accu-Cheks and sliding scale insulin (6) Wound of lower extremity: Code(s): S81.809A - Unspecified open wound, unspecified lower leg, initial encounter Status: Acute Assessment and Plan: Wounds been consulted -surgery consulted for the right lower extremity wound (7) HTN (hypertension), malignant: Code(s): I10 - Essential (primary) hypertension Status: Acute Assessment and Plan: Hold all antihypertensives as patient is on pressors (8) Atrial fibrillation: Code(s): I48.91 - Unspecified atrial fibrillation Status: Acute Assessment and Plan: Currently rate controlled, if she goes into AFib RVR will start amiodarone infusion Plan DVT prophylaxis: Lovenox Stress ulcer prophylaxis: Protonix Nutrition: NPO for now 12/30/2021: Discussed with son x1, he is agreeable to meeting with hospice nurse. Discussed with care with patient regarding hospice evaluation for the patient 12/29/2021: Discuss with 2 sons at bedside, updated them with patient's condition and plan of care. I discussed with them regarding her colitis, urinary tract infection, has septic shock and that she is requiring high dose of Levophed. They are willing to meet with hospice nurses on 12/30/2021 or 12/31/2021. Code Status: Do not resuscitate, do not intubate, okay for vasopressors central line Critical Care Time Spent: 33 minutes Due to a high probability of clinically significant, life threatening deterioration, the patient required my highest level of preparedness to intervene emergently and I personally spen
--- NOTE | 2021-12-30 11:24 | PM.PNGS ---
Progress Note: A&P Assessment and Plan (1) Septic shock: Code(s): A41.9 - Sepsis, unspecified organism; R65.21 - Severe sepsis with septic shock Status: Acute Assessment and Plan: seems to be responding to treatment, cont abx, serial exams (2) C. difficile colitis: Code(s): A04.72 - Enterocolitis due to Clostridium difficile, not specified as recurrent Status: Acute Assessment and Plan: cont abx, labs improving Subjective Subjective Date/Time Seen: 12/30/21 11:24 no acute issues, seems to be slightly improving Review of Systems Review of Systems: ROS unobtainable: Yes unobtainable due to medical condition and unobtainable due to mental status Exam Const: General: ill appearing Resp: Auscultation: diminished lung sounds Cardio: Rate: regular rate Rhythm: regular rhythm GI: Inspection: normal to inspection and distended GI Palp: Yes abdominal tenderness, Yes Soft to palpation, Yes Tenderness to palpation present (GI), No Guarding due to palpation present (GI) and No Rigid due to palpation Objective Data Vital Signs Vital Signs: Vital Signs - 24 hr 12/29/21 11:30 12/29/21 12:00 12/29/21 12:33 Temperature 35.6 C L 35.7 C L Pulse Rate 105 H Respiratory Rate Blood Pressure 116/54 L Pulse Oximetry Oxygen Delivery 12/29/21 12:00 12/29/21 12:00 12/29/21 12:00 Temperature 35.8 C L Pulse Rate 105 H 108 H 98 Respiratory Rate 20 15 Blood Pressure 128/70 Pulse Oximetry 100 100 Oxygen Delivery Room Air 12/29/21 12:30 12/29/21 13:00 12/29/21 13:30 Temperature 35.8 C L 35.9 C L 36.1 C L Pulse Rate Respiratory Rate Blood Pressure Pulse Oximetry Oxygen Delivery 12/29/21 14:12 12/29/21 14:00 12/29/21 14:00 Temperature 36.3 C L Pulse Rate 104 H 102 H Respiratory Rate Blood Pressure 118/70 Pulse Oximetry Oxygen Delivery 12/29/21 14:00 12/29/21 15:23 12/29/21 16:00 Temperature 36.3 C L Pulse Rate 88 99 93 Respiratory Rate 15 14 Blood Pressure 103/61 120/57 L Pulse Oximetry 100 100 Oxygen Delivery Room Air 12/29/21 16:00 12/29/21 16:00 12/29/21 16:00 Temperature 36.0 C L Pulse Rate 90 96 92 Respiratory Rate 15 Blood Pressure 94/50 L 120/65 Pulse Oximetry 100 Oxygen Delivery 12/29/21 18:00 12/29/21 18:00 12/29/21 20:00 Temperature 36.1 C L Pulse Rate 96 96 104 H Respiratory Rate 16 14 Blood Pressure 108/59 L Pulse Oximetry 100 100 Oxygen Delivery Room Air 12/29/21 20:00 12/29/21 20:00 12/29/21 21:39 Temperature 35.9 C L Pulse Rate 104 H 107 H 83 Respiratory Rate 15 Blood Pressure 117/59 L 115/71 Pulse Oximetry 100 Oxygen Delivery 12/29/21 21:39 12/29/21 22:00 12/30/21 00:00 Temperature Pulse Rate 83 83 84 Respiratory Rate 18 18 Blood Pressure 115/71 114/63 Pulse Oximetry 99 100 Oxygen Delivery Room Air 12/30/21 00:00 12/30/21 00:00 12/30/21 02:00 Temperature 35.9 C L Pulse Rate 84 84 106 H Respiratory Rate 12 14 Blood Pressure 114/57 L 109/64 Pulse Oximetry 100 100 Oxygen Delivery 12/30/21 04:00 12/30/21 04:00 12/30/21 04:00 Temperature 35.8 C L Pulse Rate 81 81 81 Respiratory Rate 15 12 Blood Pressure 122/59 L Pulse Oximetry 99 100 Oxygen Delivery Room Air 12/30/21 04:59 12/30/21 06:21 12/30/21 06:00 Temperature Pulse Rate 79 95 84 Respiratory Rate 12 Blood Pressure 123/59 L 96/62 L 132/62 Pulse Oximetry 100 Oxygen Delivery 12/30/21 08:00 12/30/21 08:00 12/30/21 09:49 Temperature 36.1 C L Pulse Rate 96 90 101 H Respiratory Rate 22 H Blood Pressure 170/101 H 132/62 132/97 H Pulse Oximetry 94 Oxygen Delivery 12/30/21 10:09 12/30/21 10:00 12/30/21 10:00 Temperature 35.9 C L Pulse Rate 69 Respiratory Rate 12 Blood Pressure 124/49 L 88/51 L Pulse Oximetry 100 100 Oxygen Delivery Room Air 12/30/21 08:00 Temperature Pulse Rate 69 Respiratory
[2021-12-30 12:34] LABS: Glucose Point of Care 140 mg/dl (65-105)
[2021-12-30] MEDS: NOREPINEPHRINE 8 MG/D5W 250 ML 8 MG/250 ML BAG 9.38 MG IV CONT (13:26)
[2021-12-30 18:28] LABS: Glucose Point of Care 151 mg/dl (65-105)
[2021-12-31] VITALS (16 sets, daily range): BP systolic 78–126; BP diastolic 48–76; PULSE 10–88; RESP 11–22; TEMP 35.8–36.8; O2SAT 93–100; BMI 24.8
[2021-12-31] MEDS: ALBUMIN HUMAN 25% 25 GM/100 ML 100 ML IVPB ×5 (00:19→23:15)
[2021-12-31 00:35] LABS: Glucose Point of Care 93 mg/dl (65-105)
[2021-12-31] MEDS: CENTRAL LINE FLUSH 10 ML IV PUSH ×3 (04:57→21:11)
[2021-12-31] MEDS: LACTATED RINGERS 1,000 ML 75 ML IV CONT ×2 (06:41→23:15)
[2021-12-31] MEDS: metroNIDAZOLE 500 MG/ISO 100ML 500 MG/100 ML BAG 100 MG IVPB ×3 (06:41→21:11)
[2021-12-31 06:45] LABS: Basophils Percent Auto 0.3 % (0.2-1.2); Eosinophils Absolute Auto 0.2 K/mm3 (0-0.3); Eosinophils Percent Auto 1.5 % (0-4.4); Hematocrit 24.4 % (37.0-47.0); Hemoglobin 7.7 g/dL (12.0-15.0); Immature Granulocyte Absolute 0.09 K/mm3 (0.00-0.031); Immature Granulocyte Percent A 0.6 % (0-0.5); Lymphocytes Absolute Auto 1.55 K/mm3 (0.9-3.2); Lymphocytes Percent Auto 11.1 % (18.3-44.2); Mean Corpuscular HGB Conc 31.6 g/dl (32-36); Mean Corpuscular Hemoglobin 29.1 pg (26-34); Mean Corpuscular Volume 92.1 fl (80-100); Mean Platelet Volume 10.9 fl (7.4-10.4); Monocytes Absolute Auto 0.5 K/mm3 (0.1-0.6); Monocytes Percent Auto 3.7 % (2.6-8.5); Neutrophils Absolute Auto 11.6 K/mm3 (1.3-6.7); Neutrophils Percent Auto 82.8 % (45.5-73.1); Platelet Count Result 220 k/mm3 (150-375); Red Blood Count 2.65 M/mm3 (4.2-5.4); Red Cell Distribution Width 19.1 % (11.5-14.5)
[2021-12-31 07:03] LABS: Lactic Acid Reflex 1.7 mmol/L (0.7-2.0)
[2021-12-31 07:13] LABS: Alanine Aminotransferase 9 U/L (6-35); Albumin Level 2.4 g/dL (3.5-5.1); Alkaline Phosphatase 28 U/L (38-126); Anion Gap 4 mmol/L (8-16); Aspartate Amino Transferase 12 U/L (14-36); Bilirubin,Total 0.7 mg/dL (0.2-1.3); Blood Urea Nitrogen 17 mg/dL (7-17); Calcium 7.4 mg/dL (8.4-10.2); Carbon Dioxide 24 mmol/L (22-30); Chloride 114 mmol/L (98-107); Estimated CRCL calculation 63 ml/min; Estimated Glomerular Filt Rate > 60; Glucose 71 mg/dL (65-110); Magnesium 2.1 mg/dL (1.6-2.3); Phosphorus 1.8 mg/dL (2.5-4.5); Potassium 2.8 mmol/L (3.4-5.0); Sodium 142 mmol/L (137-145)
--- NOTE | 2021-12-31 08:51 | WPDINTPN ---
Progress Note: A&P Assessment and Plan (1) Septic shock: Code(s): A41.9 - Sepsis, unspecified organism; R65.21 - Severe sepsis with septic shock Status: Acute Assessment and Plan: Patient presented with altered mental status, hypotension, likely related to C diff colitis, UTI -patient was adequately fluid-resuscitated in the ER, right IJ central line was inserted. Continue IV fluids at low rate -patient remains on Levophed , maintain MAP > 65 mmHg. Off vasopressin -continue maintenance IV fluids, currently on sodium bicarbonate infusion, will continue -lactic acid has normalized -12/28/2021, blood cultures: Preliminary results are negative x2 -12/28/2021: Stool positive for C diff -12/28/2021: Urine culture growing Klebsiella pneumoniae ESBL, susceptible to imipenem only -will stop cefepime, started imipenem on 12/30/2021 -continue IV Flagyl (12/29) - 12/31 DC IV vancomycin. Start p.o. vancomycin (2) UTI (urinary tract infection): Code(s): N39.0 - Urinary tract infection, site not specified Status: Acute Assessment and Plan: 12/28/2021: Urine cultures growing ESBL Klebsiella pneumonia, susceptible to imipenem only -antibiotics have been switched as above (3) C. difficile colitis: Code(s): A04.72 - Enterocolitis due to Clostridium difficile, not specified as recurrent Status: Acute Assessment and Plan: Continue Flagyl. Add p.o. vancomycin -Levophed being weaned -surgery following the patient, no intervention at this time (4) Dementia: Code(s): F03.90 - Unspecified dementia, unspecified severity, without behavioral disturbance, psychotic disturbance, mood disturbance, and anxiety Status: Acute Assessment and Plan: Dr. Alejandro discussed with 2 sons at bedside, they do agree that patient has severe dementia, status stated that she was admitted [facility] of couple of months ago for her lower extremity wound, doctors over there were talking about amputation, she may not be a candidate according the doctors. The doctors at [facility] did discuss with the sons regarding hospice care, also discussed with them regarding hospice care and the open to meet with the hospice nurse on 12/31/2021 The sons also mentioned that the patient has had decreased oral intake due to her dementia. (5) Diabetes mellitus: Code(s): E11.9 - Type 2 diabetes mellitus without complications Status: Acute Assessment and Plan: Continue Accu-Cheks and sliding scale insulin (6) Wound of lower extremity: Code(s): S81.809A - Unspecified open wound, unspecified lower leg, initial encounter Status: Acute Assessment and Plan: Wounds been consulted -surgery consulted for the right lower extremity wound (7) HTN (hypertension), malignant: Code(s): I10 - Essential (primary) hypertension Status: Acute Assessment and Plan: Hold all antihypertensives as patient is on pressors (8) Atrial fibrillation: Code(s): I48.91 - Unspecified atrial fibrillation Status: Acute Assessment and Plan: Currently in sinus rhythm Resume p.o. amiodarone Plan DVT prophylaxis: Lovenox Stress ulcer prophylaxis: Protonix Nutrition: Start clear liquid diet and advance as tolerated Code Status: Do not resuscitate, do not intubate, okay for vasopressors central line Critical Care Time Spent: 30 minutes Due to a high probability of clinically significant, life threatening deterioration, the patient required my highest level of preparedness to intervene emergently and I personally spent this critical care time directly and personally managing the patient. This critical care time included obtaining a history; examining the patient; pulse oximetry; ordering and review of studies; arranging urgent treatment with development of a management plan; evaluation of patient's response to treatment; frequent reassessment; and discussions with o
[2021-12-31] MEDS: CALCIUM GLUC 2,000 MG/NS 100ML 2,000 MG/100 ML BAG 100 MG IVPB (08:54)
[2021-12-31] MEDS: SILVERGEL (ELTA) 45 ML 1 APPLIC TOPICAL (08:55)
[2021-12-31] MEDS: PANTOPRAZOLE SODIUM IV 40 MG VIAL IV PUSH ×2 (08:56→20:03)
[2021-12-31] MEDS: TOLNAFTATE 1% POWDER 45 GM BTL 1 APPLIC TOPICAL ×2 (08:56→20:03)
[2021-12-31] MEDS: ENOXAPARIN 40 MG/0.4 ML SYRINGE SUB-Q (08:56)
[2021-12-31] MEDS: POTASSIUM PHOS,M-BASIC-D-BASIC 40 MMOL in SODIUM CHLORIDE 0.9% IV 250 ML 43.89 MMOL IVPB (09:18)
[2021-12-31] MEDS: AMIODARONE HCL 200 MG TABLET PO (09:49)
--- NOTE | 2021-12-31 11:51 | PM.PNGS ---
Progress Note: A&P Assessment and Plan (1) Septic shock: Code(s): A41.9 - Sepsis, unspecified organism; R65.21 - Severe sepsis with septic shock Status: Acute Assessment and Plan: Continue antibiotics and critical care management, plan for family to discuss hospice today, monitor labs (2) C. difficile colitis: Code(s): A04.72 - Enterocolitis due to Clostridium difficile, not specified as recurrent Status: Acute Assessment and Plan: Continue antibiotics and monitor with serial abdominal exams, WBC trending down and lactic acid normalized Plan I have discussed the patient's case and plan of care with Dr. Mcrae. Subjective Subjective Date/Time Seen: 12/31/21 11:51 Interval history: Patient seen and examined. Chart reviewed. She has dementia and is a poor historian. No family at the bedside. Review of Systems Review of Systems: ROS unobtainable: Yes unobtainable due to mental status Exam Const: General: ill appearing and tired appearing (Easy to arouse) Orientation/consciousness: confusion GI: Inspection: other (Mildly distended) GI Palp: Yes Soft to palpation, No Tenderness to palpation present (GI), No Guarding due to palpation present (GI) and No Rebound tenderness present Auscultation: normal bowel sounds Psych: Insight: Limited insight present (Psych) Judgement: Limited judgement present (Psych) Objective Data Vital Signs Vital Signs: Vital Signs - 24 hr 12/30/21 12:00 12/30/21 12:00 12/30/21 12:00 Temperature 96.8 F L Pulse Rate 75 80 75 Respiratory Rate 11 L 12 Blood Pressure 105/47 L Pulse Oximetry 100 100 Oxygen Delivery Room Air 12/30/21 13:26 12/30/21 14:00 12/30/21 14:00 Temperature 96.9 F L Pulse Rate 90 87 70 Respiratory Rate 12 Blood Pressure 106/50 L 108/55 L Pulse Oximetry 100 Oxygen Delivery 12/30/21 15:13 12/30/21 16:00 12/30/21 16:00 Temperature 96.6 F L 98.2 F Pulse Rate 103 H 72 104 H Respiratory Rate 11 L 12 16 Blood Pressure 108/55 L 109/76 Pulse Oximetry 99 98 100 Oxygen Delivery Room Air 12/30/21 16:00 12/30/21 17:18 12/30/21 18:20 Temperature Pulse Rate 71 82 75 Respiratory Rate Blood Pressure 120/88 114/65 Pulse Oximetry Oxygen Delivery 12/30/21 17:38 12/30/21 18:00 12/30/21 18:00 Temperature 96.4 F L Pulse Rate 74 75 69 Respiratory Rate 17 Blood Pressure 115/62 116/70 Pulse Oximetry 96 Oxygen Delivery 12/30/21 20:00 12/30/21 20:00 12/30/21 20:00 Temperature 96.6 F L Pulse Rate 72 72 72 Respiratory Rate 12 16 Blood Pressure 117/57 L Pulse Oximetry 95 93 Oxygen Delivery Room Air 12/30/21 21:55 12/30/21 22:00 12/31/21 00:00 Temperature Pulse Rate 70 62 72 Respiratory Rate 16 18 Blood Pressure 114/60 115/56 L Pulse Oximetry 95 97 Oxygen Delivery Room Air 12/31/21 00:00 12/31/21 00:00 12/31/21 02:00 Temperature 96.7 F L Pulse Rate 72 72 76 Respiratory Rate 16 20 Blood Pressure 112/68 106/54 L Pulse Oximetry 99 100 Oxygen Delivery 12/31/21 04:00 12/31/21 04:00 12/31/21 04:00 Temperature 96.5 F L Pulse Rate 78 76 81 Respiratory Rate 18 22 H Blood Pressure 105/48 L Pulse Oximetry 95 95 Oxygen Delivery Room Air 12/31/21 06:00 12/31/21 06:00 12/31/21 06:39 Temperature Pulse Rate 86 86 75 Respiratory Rate 18 Blood Pressure 123/60 126/67 Pulse Oximetry 99 Oxygen Delivery 12/31/21 06:45 12/31/21 07:26 12/31/21 09:49 Temperature 97.4 F L Pulse Rate 77 80 82 Respiratory Rate 14 Blood Pressure 78/58 L 109/76 Pulse Oximetry 98 Oxygen Delivery 12/31/21 10:00 Temperature Pulse Rate 84 Respiratory Rate 11 L Blood Pressure 96/63 L Pulse Oximetry 98 Oxygen Delivery Intake/Output Intake/Output: Intake & Output 12/28/21 12/29/21 12/30/21 12/31/21 23:59 23:59 23:59 23:59 Intake Total 5800 5150 2500 400 Output Total 875 1000 350 Balance 5800 4275 1500 50
[2021-12-31] MEDS: VANCOMYCIN ORAL 125 MG/2.5 ML SYRUP PO ×3 (11:53→23:16)
[2021-12-31 11:57] LABS: Glucose Point of Care 81 mg/dl (65-105)
[2021-12-31] MEDS: MIDODRINE HCL 10 MG TABLET PO ×2 (11:59→16:52)
--- NOTE | 2021-12-31 16:52 | PM.IMPN ---
Progress Note: A&P Assessment and Plan (1) Septic shock: Code(s): A41.9 - Sepsis, unspecified organism; R65.21 - Severe sepsis with septic shock Status: Acute Assessment and Plan: Appreciate critical care management, severe, secondary to C diff colitis P.o. vancomycin for C diff colitis, continue imipenem for ESBL UTI (2) UTI (urinary tract infection): Code(s): N39.0 - Urinary tract infection, site not specified Status: Acute Assessment and Plan: Urine cultures have been obtained and pending, continue antibiotics as above (3) C. difficile colitis: Code(s): A04.72 - Enterocolitis due to Clostridium difficile, not specified as recurrent Status: Acute Assessment and Plan: Continue Flagyl, May need to drop an NG tube and start p.o. vancomycin (4) Dementia: Code(s): F03.90 - Unspecified dementia, unspecified severity, without behavioral disturbance, psychotic disturbance, mood disturbance, and anxiety Status: Acute Assessment and Plan: Recommend hospice care, family considering (5) Diabetes mellitus: Code(s): E11.9 - Type 2 diabetes mellitus without complications Status: Acute Assessment and Plan: Continue Accu-Cheks and sliding scale insulin (6) Wound of lower extremity: Code(s): S81.809A - Unspecified open wound, unspecified lower leg, initial encounter Status: Acute Assessment and Plan: Appreciate general surgery consultation, patient not a candidate for debridement or amputation (7) HTN (hypertension), malignant: Code(s): I10 - Essential (primary) hypertension Status: Acute Assessment and Plan: Hold all antihypertensives as patient is on pressors (8) Atrial fibrillation: Code(s): I48.91 - Unspecified atrial fibrillation Status: Acute Assessment and Plan: Rate controlled Plan DVT prophylaxis with SCDs GI prophylaxis not indicated Code status modified code, DNR/DNI, family okay with medications and pressors Subjective Date/time seen: 12/31/21 16:52 Interval history: No overnight events noted. No vomiting or diarrhea. No fevers or chills. Review of Systems Review of Systems: ROS unobtainable: Yes unobtainable due to mental status Exam Narrative: General: No acute distress, alert and oriented per baseline HEENT: Atraumatic, normocephalic, mucous membranes moist CV: Irregularly irregular on telemetry Lungs: Unlabored breathing, no tripoding Abdomen: Soft, nondistended Objective Data Vital Signs Vital Signs: Vital Signs - 24 hr 12/30/21 17:18 12/30/21 18:20 12/30/21 17:38 Temperature Pulse Rate 82 75 74 Respiratory Rate Blood Pressure 120/88 114/65 115/62 Pulse Oximetry Oxygen Delivery 12/30/21 18:00 12/30/21 18:00 12/30/21 20:00 Temperature 96.4 F L Pulse Rate 75 69 72 Respiratory Rate 17 12 Blood Pressure 116/70 Pulse Oximetry 96 95 Oxygen Delivery Room Air 12/30/21 20:00 12/30/21 20:00 12/30/21 21:55 Temperature 96.6 F L Pulse Rate 72 72 70 Respiratory Rate 16 Blood Pressure 117/57 L 114/60 Pulse Oximetry 93 Oxygen Delivery 12/30/21 22:00 12/31/21 00:00 12/31/21 00:00 Temperature Pulse Rate 62 72 72 Respiratory Rate 16 18 Blood Pressure 115/56 L Pulse Oximetry 95 97 Oxygen Delivery Room Air 12/31/21 00:00 12/31/21 02:00 12/31/21 04:00 Temperature 96.7 F L Pulse Rate 72 76 78 Respiratory Rate 16 20 18 Blood Pressure 112/68 106/54 L Pulse Oximetry 99 100 95 Oxygen Delivery Room Air 12/31/21 04:00 12/31/21 04:00 12/31/21 06:00 Temperature 96.5 F L Pulse Rate 76 81 86 Respiratory Rate 22 H Blood Pressure 105/48 L Pulse Oximetry 95 Oxygen Delivery 12/31/21 06:00 12/31/21 06:39 12/31/21 06:45 Temperature Pulse Rate 86 75 77 Respiratory Rate 18 Blood Pressure 123/60 126/67 78/58 L Pulse Oximetry 99 Oxygen Delivery
[2021-12-31 18:14] LABS: Glucose Point of Care 72 mg/dl (65-105)
[2022-01-01] VITALS (9 sets, daily range): BP systolic 95–116; BP diastolic 46–61; PULSE 76–96; RESP 16–24; TEMP 36.2–37.4; O2SAT 70–100
[2022-01-01 00:13] LABS: Glucose Point of Care 69 mg/dl (65-105)
--- NOTE | 2022-01-01 04:55 | PC.NURSE ---
0355 patients o2 sats decreased to 71%. Nasal cannula started at 6liters. Good pleth noted.
--- NOTE | 2022-01-01 04:57 | PC.NURSE ---
0420 o@2 sats 80% on 6l nasal cannula. 100% NRB mask added. 0445 o2 Sats 91-93% RR 18 . Tolerating well. No apparent distress noted.
[2022-01-01 06:15] LABS: Hematocrit 21.1 % (37.0-47.0); Mean Corpuscular HGB Conc 32.2 g/dl (32-36); Mean Corpuscular Hemoglobin 28.7 pg (26-34); Platelet Count Result 168 k/mm3 (150-375); Red Blood Count 2.37 M/mm3 (4.2-5.4); Red Cell Distribution Width 19.3 % (11.5-14.5); White Blood Count 14.7 K/mm3 (4.5-10.0)
[2022-01-01 06:32] LABS: Hemoglobin 6.8 g/dL (12.0-15.0)
[2022-01-01] MEDS: ALBUMIN HUMAN 25% 25 GM/100 ML 100 ML IVPB (06:35)
[2022-01-01] MEDS: metroNIDAZOLE 500 MG/ISO 100ML 500 MG/100 ML BAG 100 MG IVPB (06:36)
[2022-01-01] MEDS: CENTRAL LINE FLUSH 10 ML IV PUSH ×2 (06:36→14:34)
[2022-01-01] MEDS: VANCOMYCIN ORAL 125 MG/2.5 ML SYRUP PO ×2 (06:36→12:34)
[2022-01-01 06:40] LABS: Alanine Aminotransferase 7 U/L (6-35); Albumin Level 2.9 g/dL (3.5-5.1); Alkaline Phosphatase 24 U/L (38-126); Anion Gap 12 mmol/L (8-16); Aspartate Amino Transferase 11 U/L (14-36); Blood Urea Nitrogen 13 mg/dL (7-17); Calcium 7.8 mg/dL (8.4-10.2); Carbon Dioxide 24 mmol/L (22-30); Chloride 111 mmol/L (98-107); Estimated CRCL calculation 63 ml/min; Estimated Glomerular Filt Rate > 60; Glucose 61 mg/dL (65-110); Magnesium 1.8 mg/dL (1.6-2.3); Phosphorus 2.9 mg/dL (2.5-4.5); Potassium 2.7 mmol/L (3.4-5.0); Sodium 147 mmol/L (137-145)
--- NOTE | 2022-01-01 07:27 | PM.IMPN ---
Progress Note: A&P Assessment and Plan (1) Septic shock: Code(s): A41.9 - Sepsis, unspecified organism; R65.21 - Severe sepsis with septic shock Status: Acute Assessment and Plan: Appreciate critical care management, severe, secondary to C diff colitis P.o. vancomycin switched to IV flagyl d/t npo status for C diff colitis, continue imipenem for ESBL UTI (2) UTI (urinary tract infection): Code(s): N39.0 - Urinary tract infection, site not specified Status: Acute Assessment and Plan: urine cx shows ESBL, continue imipenem (3) C. difficile colitis: Code(s): A04.72 - Enterocolitis due to Clostridium difficile, not specified as recurrent Status: Acute Assessment and Plan: continue iv flagyl (4) Dementia: Code(s): F03.90 - Unspecified dementia, unspecified severity, without behavioral disturbance, psychotic disturbance, mood disturbance, and anxiety Status: Acute Assessment and Plan: Recommend hospice care, family considering (5) Diabetes mellitus: Code(s): E11.9 - Type 2 diabetes mellitus without complications Status: Acute Assessment and Plan: Continue Accu-Cheks and sliding scale insulin (6) Wound of lower extremity: Code(s): S81.809A - Unspecified open wound, unspecified lower leg, initial encounter Status: Acute Assessment and Plan: Appreciate general surgery consultation, patient not a candidate for debridement or amputation (7) HTN (hypertension), malignant: Code(s): I10 - Essential (primary) hypertension Status: Acute Assessment and Plan: Hold all antihypertensives as patient is on pressors cont to wean levophed as able (8) Atrial fibrillation: Code(s): I48.91 - Unspecified atrial fibrillation Status: Acute Assessment and Plan: Rate controlled (9) Anemia: Code(s): D64.9 - Anemia, unspecified Status: Acute Assessment and Plan: hgb dropped below 7 today, transfusion on hold until plan of care discussed with family, appreciate hat and cap sewer management would strongly recommend hospice (10) Hypoxia: Code(s): R09.02 - Hypoxemia Status: Acute Assessment and Plan: now on 6L O2 NRB after hypoxia noted overnight, family does not wish for intubation, prognosis is poor Plan DVT prophylaxis with SCDs GI prophylaxis not indicated Code status modified code, DNR/DNI, family okay with medications and pressors Subjective Date/time seen: 01/01/22 07:27 Interval history: pleasantly confused, noted to desat overnight and now requiring 6L on NRB. no fevers. Review of Systems Review of Systems: ROS unobtainable: Yes unobtainable due to mental status Exam Narrative: General: No acute distress HEENT: Atraumatic, normocephalic CV: Irregularly irregular on telemetry Lungs: Unlabored breathing, no tripoding Abdomen: Soft, nondistended Ext: large necrotic wound noted on LLE, unchanged Objective Data Vital Signs Vital Signs: Vital Signs - 24 hr 12/31/21 09:49 12/31/21 10:00 12/31/21 12:00 Temperature 97.0 F L Pulse Rate 82 84 81 Respiratory Rate 11 L 18 Blood Pressure 96/63 L 90/75 L Pulse Oximetry 98 97 Oxygen Delivery Oxygen Flow Rate 12/31/21 08:05 12/31/21 08:05 12/31/21 08:05 Temperature 97.3 F L Pulse Rate 79 79 79 Respiratory Rate 14 14 Blood Pressure 110/55 L Pulse Oximetry 98 98 Oxygen Delivery Room Air Oxygen Flow Rate 12/31/21 10:00 12/31/21 12:00 12/31/21 12:00 Temperature Pulse Rate 81 79 79 Respiratory Rate 13 Blood Pressure Pulse Oximetry 100 Oxygen Delivery Room Air Oxygen Flow Rate 12/31/21 14:00 12/31/21 14:00 12/31/21 16:00 Temperature 96.5 F L 96.5 F L Pulse Rate 73 72 10 L Respiratory Rate 15 11 L Blood Pressure 114/66 114/62 Pulse Oximetry 98 98 Oxygen Delivery Oxygen Flow Rate 12/31/21 16:00 12/31/21 16:00 12/31/21
[2022-01-01] MEDS: KCL 20 MEQ/D5/0.45% SOD CHL 1,000 ML 75 ML IV CONT (08:23)
[2022-01-01] MEDS: KCL 40 MEQ/WATER 100 ML 100 ML 25 ML IVPB ×2 (08:25→12:34)
[2022-01-01] MEDS: PANTOPRAZOLE SODIUM IV 40 MG VIAL IV PUSH (08:27)
[2022-01-01] MEDS: SILVERGEL (ELTA) 45 ML 1 APPLIC TOPICAL (08:29)
[2022-01-01] MEDS: TOLNAFTATE 1% POWDER 45 GM BTL 1 APPLIC TOPICAL (08:29)
--- NOTE | 2022-01-01 11:05 | WPDINTPN ---
Progress Note: A&P Assessment and Plan (1) Hypoxia: Code(s): R09.02 - Hypoxemia Status: Acute Assessment and Plan: Increased oxygen requirement overnight. Chest x-ray shows combination of atelectasis. Pulmonary edema and possible aspiration pneumonia. Patient made NPO and will consult speech for swallow evaluation Continue imipenem and Flagyl Requested nurse to place patient on left side, PEP therapy ordered q.6 hours . It is going to be difficult as patient herself is not cooperative with any therapy and resists any intervention. Hold IV fluids Hold Lasix at this time since patient is hypokalemic and potassium is being replaced Continue supplemental oxygen. Hold NIPPV as patient is not in any respiratory distress (2) Septic shock: Code(s): A41.9 - Sepsis, unspecified organism; R65.21 - Severe sepsis with septic shock Status: Acute Assessment and Plan: Patient presented with altered mental status, hypotension, likely related to C diff colitis, UTI -patient was adequately fluid-resuscitated in the ER, right IJ central line was inserted. -off IV fluids now -Off Levophed -12/28/2021, blood cultures: Preliminary results are negative x2 -12/28/2021: Stool positive for C diff -12/28/2021: Urine culture growing Klebsiella pneumoniae ESBL, susceptible to imipenem only -will stop cefepime, started imipenem on 12/30/2021 -continue IV Flagyl (12/29) - 12/31 DC IV vancomycin. - p.o. vancomycin on hold due to suspected aspiration (3) UTI (urinary tract infection): Code(s): N39.0 - Urinary tract infection, site not specified Status: Acute Assessment and Plan: 12/28/2021: Urine cultures growing ESBL Klebsiella pneumonia, susceptible to imipenem only -antibiotics have been switched as above (4) C. difficile colitis: Code(s): A04.72 - Enterocolitis due to Clostridium difficile, not specified as recurrent Status: Acute Assessment and Plan: Continue IV Flagyl. Patient was started on p.o. vancomycin which is now on hold to suspected aspiration Speech evaluation requested May need NG tube if fails Surgery following the patient, no intervention at this time (5) Dementia: Code(s): F03.90 - Unspecified dementia, unspecified severity, without behavioral disturbance, psychotic disturbance, mood disturbance, and anxiety Status: Acute Assessment and Plan: Dr. Alejandro discussed with 2 sons at bedside, they do agree that patient has severe dementia, status stated that she was admitted [facility], [place] of couple of months ago for her lower extremity wound, doctors over there were talking about amputation, she may not be a candidate according the doctors. The doctors at [facility], [place] did discuss with the sons regarding hospice care, also discussed with them regarding hospice care and the open to meet with the hospice nurse on 12/31/2021 The sons also mentioned that the patient has had decreased oral intake due to her dementia. SEE BELOW (6) Diabetes mellitus: Code(s): E11.9 - Type 2 diabetes mellitus without complications Status: Acute Assessment and Plan: Continue Accu-Cheks and sliding scale insulin (7) Wound of lower extremity: Code(s): S81.809A - Unspecified open wound, unspecified lower leg, initial encounter Status: Acute Assessment and Plan: Local wound care -surgery consulted for the right lower extremity wound (8) HTN (hypertension), malignant: Code(s): I10 - Essential (primary) hypertension Status: Acute Assessment and Plan: Hold all antihypertensives as patient is on pressors (9) Atrial fibrillation: Code(s): I48.91 - Unspecified atrial fibrillation Status: Acute Assessment and Plan: Currently in sinus rhythm On p.o. amiodarone (10) Anemia: Code(s): D64.9 - Anemia, unspecified Status: Acute Assessment and Plan: Hemoglobin dropped to 6.8 Romero
--- NOTE | 2022-01-01 11:44 | PCFNICU ---
ICU Rounding Note: Pt current nutrition is NPO. Last recorded weight is 67.5 kg Bowel Motility: No BM reported Labs Reviewed:Glu 61, Cr 0.6,K 2.7,Alb 2.9,Na 147, HCt 21.1,Hgb 6.8 Meds Noted:Flagyl, Protonix, Vancomycin Skin: Stage III pressure ulcer-hips, Stage II pressure ulcer-coccyx, Deep Tissue-thighs Additional Notes: Patient having more O2 requirements. Discussions regarding hospice. No plans for feedings patient at this time. Following daily in ICU rounds.
--- NOTE | 2022-01-01 12:47 | PCSTNOTE ---
Please refer to the Bedside Swallow Evaluation in the EMR. Please note, silent aspiration cannot be ruled out at bedside. No further ST services are indicated at this time.
[2022-01-01 12:58] LABS: NT Pro B Type Natriuretic Pept 9840 pg/mL (5-100)
--- NOTE | 2022-01-01 14:34 | PC.NURSE ---
Discharging patient to Hospice with [facility]
[2022-01-01 15:07] LABS: Glucose Point of Care 73 mg/dl (65-105)
--- NOTE | 2022-01-01 18:04 | PM.DS ---
DS: Admitting Diagnosis Discharge Date 01/01/22 Admitting Diagnosis Diarrhea DS: Discharge Diagnosis Discharge Diagnosis (1) Septic shock: Code(s): A41.9 - Sepsis, unspecified organism; R65.21 - Severe sepsis with septic shock Status: Acute (2) UTI (urinary tract infection): Code(s): N39.0 - Urinary tract infection, site not specified Status: Acute (3) C. difficile colitis: Code(s): A04.72 - Enterocolitis due to Clostridium difficile, not specified as recurrent Status: Acute (4) Dementia: Code(s): F03.90 - Unspecified dementia, unspecified severity, without behavioral disturbance, psychotic disturbance, mood disturbance, and anxiety Status: Acute (5) Diabetes mellitus: Code(s): E11.9 - Type 2 diabetes mellitus without complications Status: Acute (6) Wound of lower extremity: Code(s): S81.809A - Unspecified open wound, unspecified lower leg, initial encounter Status: Acute (7) HTN (hypertension), malignant: Code(s): I10 - Essential (primary) hypertension Status: Acute (8) Atrial fibrillation: Code(s): I48.91 - Unspecified atrial fibrillation Status: Acute (9) Anemia: Code(s): D64.9 - Anemia, unspecified Status: Acute (10) Hypoxia: Code(s): R09.02 - Hypoxemia Status: Acute DS: Summary Hospital Course Hospital Course: 76-year-old female patient who comes from a fdc with complaints of diarrhea.? According to her fdc papers she had stool cultures obtained on 11/13/2021 due to her diarrhea.? After reviewing her information from the fdc, it was noted that patient has failure to thrive.? Today the patient was found with low blood pressure.? She has decreased oral intake and weight loss.? The patient also was recently treated with antibiotics at [facility] for UTI.? It looks like it may have been in October.? Her white blood cell Count was noted to be 23.1 today with Her H&H is 9.9 and 31.8.? Her lactic was 4.9 and has come down to 2.5.? Glucose is 172 GFR is noted to be 54.? Lipase is normal C reactive protein is 3.3.? Urine was found be cloudy 3+ protein, 3+ blood, urine bilirubin 1+, leukocyte esterase 1+, rbc's greater than 75, wbc's greater than 75, moderate amount of a? squamous epithelial cells.? Urine bacteria is +1.? She was negative for COVID and was positive for C diff. patient was given IV fluids, dopamine, Zosyn, Levophed, and vancomycin.? A central line was placed in the emergency room as the patient has sepsis.? Hospice was recommended early on as patient's prognosis was extremely poor. She was treated for C diff colitis with IV Flagyl due to her NPO status. She was also given vancomycin, cefepime and Levophed due to the severity of her sepsis in [place] diff was not the only source. She was also thought to have a UTI, urine cultures were pending. Patient also needed a sodium bicarb infusion. Despite aggressive supportive care, the patient deteriorated and was ultimately discharged and admitted to inpatient hospice for comfort care. Time Spent with Patient Time attestation: Total time spent providing and/or coordinating discharge services: DS: Data Data Completed and Pending Labs on day of discharge: Labs from last 24 hours 01/01/22 01/01/22 01/01/22 12:39 05:53 05:53 WBC RBC Hgb Hct MCV MCH MCHC RDW Plt Count MPV Sodium 147 H Potassium 2.7 L* Chloride 111 H Carbon Dioxide 24 Anion Gap 12 BUN 13 Creatinine 0.60 L Estim Creat Clear Calc 63 Estimated GFR > 60 Glucose 61 L POC Capillary Glucose 73 Calcium 7.8 L Phosphorus 2.9 Magnesium 1.8 Total Bilirubin 1.0 AST 11 L ALT 7 Alkaline Phosphatase 24 L NT-Pro-B Natriuret Pep Total Protein 4.0 L Albumin 2.9 L Free T3 Pending 01/01/22 01/01/22 01/01/22 05:53 05:50 00:02 WBC 14.7 H R
[2022-01-04 07:08] LABS: Triiodothyronine T3 Free 1.3 pg/mL (2.3-4.2)
== END 2022-01-01 15:33 | disposition hospice, inpatient (51) | DRG 871 ==
LOC: ANHED 14:00 → ANHICU 19:00
PROVIDERS: Internal Medicine; Nurse Practitioner; Admitting Provider Student in an Organized Health Care Education/Training Program; Emergency Provider General Practice; PCP Internal Medicine; Visit Provider Student in an Organized Health Care Education/Training Program
DX: A41.9 Sepsis, unspecified organism (principal); R65.21 Severe sepsis with septic shock; L89.223 Pressure ulcer of left hip, stage 3; A04.72 Enterocolitis due to Clostridium difficile, not specified as recurrent; N39.0 Urinary tract infection, site not specified; E87.20 Acidosis, unspecified; Z16.12 Extended spectrum beta lactamase (ESBL) resistance; L97.819 Non-pressure chronic ulcer of other part of right lower leg with unspecified severity; F03.90 Unspecified dementia, unspecified severity, without behavioral disturbance, psychotic disturbance, mood disturbance, and anxiety; E11.9 Type 2 diabetes mellitus without complications; I10 Essential (primary) hypertension; D64.9 Anemia, unspecified; R09.02 Hypoxemia; I48.91 Unspecified atrial fibrillation; Z20.822 Contact with and (suspected) exposure to COVID-19; L89.152 Pressure ulcer of sacral region, stage 2
CPT/HCPCS: 36415; 51702; 70450; 71045; 73630; 74177; 80053; 81001; 82140; 82948; 83036; 83605; 83690; 83735; 83880; 84100; 84439; 84443; 84481; 84484; 85025; 85027; 85610; 85730; 86140; 87040; 87045; 87077; 87086; 87186; 87427; 87493; 92610; 93005; 93925; 94640; 96361; 96365; 96366; 96367; 99291; A9270; C1751; C9113; C9803; J0610; J0692; J0743; J1160; J1265; J1650; J1815; J2543; J3370; J3475; J3480; J7030; J7040; J7050; J7070; J7120; P9047; Q9967; U0003; U0005

== ENCOUNTER 2022-01-01 15:57 | HOS | payer OTHER, MEDICARE, MEDICAID, SELFPAY ==
[2022-01-01 16:16] VITALS: BMI 24.7
[2022-01-01] MEDS: MORPHINE SULFATE INJ (*CRX) 50 MG in SODIUM CHLORIDE 0.9% IV 95 ML IV CONT (16:31)
--- NOTE | 2022-01-01 16:31 | PM.IMHP ---
H&P: HPI History of Present Illness Date/Time: 01/01/22 16:31 Chief Complaint: uncontrolled dyspnea Narrative: this unfortunate 76-year-old female with dementia was admitted to [facility] due to mental status changes and hypotension on December 28. She was found to have UTI as well as colitis and mesenteric ischemia. She was treated with IV metronidazole and cefepime. On December 30 she was found to have ESBL Klebsiella in her urine So cefepime was discontinued and imipenem was begun.. In addition to fluid resuscitation she had been treated with IV norepinephrine which was weaned by December 31. Between December 31 and she developed progressive hypoxia and dyspnea. Despite increasing oxygen and furosemide and discontinuing fluids she continued with tachypnea and discomfort and dyspnea. On January 01 family opted for hospice service To provide comfort care. Review of Systems Review of Systems: ROS unobtainable: Yes unobtainable due to medical condition PMFSH Past Medical History Medical History Anxiety Atrial fibrillation Dementia Diabetes mellitus HTN (hypertension), malignant Surgical History Surgical History S/P ORIF (open reduction internal fixation) fracture right ankle Family History Family History Other Unknown family medical history Social History Social History (Updated 01/01/22 @ 16:56 by Vitor Hopkins MD) Social History: The patient is from [facility]. Her son Morgan and Fernando Cortez are listed as her power trial attorney. The patient is listed as a modified code. She is and retired. Smoking status unknown. Code status modified DNR Alcohol intake: unknown Substance use: unknown Spiritual care concerns: No Meds Home Medications and Allergies Home Medications Medication Instructions Recorded Confirmed Type amiodarone 200 mg tablet 200 mg PO DAILY 12/28/21 12/29/21 History ascorbic acid (vitamin C) 500 mg 500 mg PO BID 12/28/21 12/28/21 History tablet (Vitamin C) cholecalciferol (vitamin D3) 10 50 mcg PO DAILY 12/28/21 12/29/21 History mcg (400 unit) capsule (Vitamin D3) clopidogrel 75 mg tablet 75 mg PO DAILY 12/28/21 12/28/21 History metoprolol tartrate 25 mg tablet 25 mg PO BID 12/28/21 12/28/21 History metronidazole 500 mg tablet 500 mg PO Q8H 12/28/21 12/28/21 History potassium chloride 20 mEq 20 meq PO DAILY 12/28/21 12/28/21 History tablet,extended release Lactobacillus acidophilus 200 mg PO BID 12/29/21 12/29/21 History aspirin 81 mg tablet 81 mg PO DAILY 12/29/21 12/29/21 History Allergies Allergy/AdvReac Type Severity Reaction Status Date / Time No Known Allergies Allergy Verified 12/28/21 15:17 Exam Narrative: frail elderly female is mildly tachypneic but in no acute distress neck without JVD chest with coarse breath sounds scattered crackles heart regular rate mild tachycardia abdomen hypoactive bowel sounds mildly protuberant but soft and nontender extremities with bilateral mild edema of lower extremities musculoskeletal without gross deformity neurologic with grossly symmetric cranial nerves psychiatric opens eyes otherwise without response to verbal or tactile stimuli Assessment and Plan Assessment and plan (1) Palliative care encounter: Code(s): Z51.5 - Encounter for palliative care Status: Acute Assessment and Plan: meet inpatient hospice criteria due to requiring continuous IV morphine for control of dyspnea and discomfort remainder palliative regimen as ordered (2) Septic shock due to Clostridioides difficile: Code(s): A41.4 - Sepsis due to anaerobes; R65.21 - Severe sepsis with septic shock Status: Acute (3) Hypoxia: Code(s): R09.02 - Hypoxemia Status: Acute (4) Anemia: Code(
[2022-01-01 17:20] VITALS: O2SAT 90
[2022-01-01 18:52] VITALS: BP 130/61; PULSE 76; RESP 16; TEMP 35.7; O2SAT 95
[2022-01-01 20:00] VITALS: BP 97/55; PULSE 97; RESP 20; TEMP 36.1; O2SAT 92
[2022-01-02 08:00] VITALS: O2SAT 92
[2022-01-02] MEDS: GLYCOPYRROLATE INJ (*SP) 0.2 MG/ML VIAL 0.1 MG IV PUSH ×3 (13:55→20:07)
[2022-01-02 14:53] VITALS: BP 124/92; PULSE 93; RESP 8; TEMP 36.2; O2SAT 94
--- NOTE | 2022-01-02 18:52 | PM.IMPN ---
Progress Note: A&P Assessment and Plan (1) Palliative care encounter: Code(s): Z51.5 - Encounter for palliative care Status: Acute Assessment and Plan: meet inpatient hospice criteria due to requiring continuous IV morphine for control of dyspnea and discomfort remainder palliative regimen as ordered (2) Septic shock due to Clostridioides difficile: Code(s): A41.4 - Sepsis due to anaerobes; R65.21 - Severe sepsis with septic shock Status: Acute (3) Hypoxia: Code(s): R09.02 - Hypoxemia Status: Acute (4) Anemia: Code(s): D64.9 - Anemia, unspecified Status: Acute (5) C. difficile colitis: Code(s): A04.72 - Enterocolitis due to Clostridium difficile, not specified as recurrent Status: Acute Subjective Date/time seen: 01/02/22 18:52 Comfortable all day. Per family at bedside she took in small amounts of mild and applesauce. Slept most of the day. Review of Systems Review of Systems: ROS unobtainable: Yes unobtainable due to medical condition Exam Narrative: frail elderly female is mildly tachypneic but in no acute distress neck without JVD chest with coarse breath sounds scattered crackles heart regular rate mild tachycardia abdomen hypoactive bowel sounds mildly protuberant but soft and nontender extremities with bilateral mild edema of lower extremities musculoskeletal without gross deformity neurologic with grossly symmetric cranial nerves psychiatric opens eyes otherwise without response to verbal or tactile stimuli Objective Data Vital Signs Vital Signs: Vital Signs - 24 hr 01/01/22 20:00 01/01/22 20:00 01/02/22 14:53 Temperature 97 F L 97.2 F L Pulse Rate 97 97 93 Respiratory Rate 20 20 8 L Blood Pressure 97/55 L 124/92 H Pulse Oximetry 92 92 94 Oxygen Delivery Room Air 01/02/22 08:00 Temperature Pulse Rate Respiratory Rate Blood Pressure Pulse Oximetry 92 Oxygen Delivery Room Air Intake/Output Intake/Output: Intake & Output 12/30/21 12/31/21 01/01/22 01/02/22 23:59 23:59 23:59 23:59 Output Total 250 Balance -250 Meds/Results Medications: Active Medications Generic Name Dose Route Start Last Admin Trade Name Freq PRN Reason Stop Dose Admin Artificial Tears 1 drop 01/01/22 16:05 Artificial Tears Ophth Soln 15 Ml Bottle EACH EYE QID PRN Dry Eye(s) Bisacodyl 10 mg 01/01/22 16:06 Bisacodyl 10 Mg Suppository RECTAL QAM PRN Constipation Diazepam 5 mg 01/01/22 16:04 Diazepam Inj (*Crx) 10 Mg/2 Ml Syringe IV PUSH Q4HR PRN Restless Glycopyrrolate 0.1 mg 01/02/22 13:00 01/02/22 18:08 Glycopyrrolate Inj (*Sp) 0.2 Mg/Ml Vial IV PUSH 0.1 mg Q4HR DORIE Administration Morphine Sulfate 50 mg/ Sodium 100 mls @ 2 mls/hr 01/01/22 16:30 01/01/22 16:31 Chloride IV CONT 1 mg/hr .Q24H DORIE 2 mls/hr Administration 1 MG/HR Morphine Sulfate 2 mg 01/01/22 16:03 Morphine Sulfate (*Crx) 2 Mg/Ml Inj IV PUSH Q2HR PRN Pain Prochlorperazine Edisylate 10 mg 01/01/22 16:05 Prochlorperazine Edisylate 10 Mg/2 Ml Vial IV PUSH Q6H PRN Nausea And Vomiting
[2022-01-02 20:00] VITALS: BP 106/52; PULSE 51; RESP 28; TEMP 35.9; O2SAT 81
--- NOTE | 2022-01-02 22:11 | PC.NURSE ---
Previous shift RN did not administer Q24 hour scheduled continuous Morphine due at 1430. Pharmacy to bring new bag of morphine stat and will administer missed dose.
[2022-01-02] MEDS: MORPHINE SULFATE INJ (*CRX) 50 MG in SODIUM CHLORIDE 0.9% IV 95 ML IV CONT (22:22)
[2022-01-03] MEDS: GLYCOPYRROLATE INJ (*SP) 0.2 MG/ML VIAL 0.1 MG IV PUSH ×6 (02:08→22:30)
[2022-01-03 08:00] VITALS: BP 120/93; PULSE 61; RESP 8; TEMP 35.9; O2SAT 90
--- NOTE | 2022-01-03 17:45 | PM.IMPN ---
Progress Note: A&P Assessment and Plan (1) Palliative care encounter: Code(s): Z51.5 - Encounter for palliative care Status: Acute Assessment and Plan: meet inpatient hospice criteria due to requiring continuous IV morphine for control of dyspnea and discomfort remainder palliative regimen as ordered (2) Septic shock due to Clostridioides difficile: Code(s): A41.4 - Sepsis due to anaerobes; R65.21 - Severe sepsis with septic shock Status: Acute (3) Hypoxia: Code(s): R09.02 - Hypoxemia Status: Acute (4) Anemia: Code(s): D64.9 - Anemia, unspecified Status: Acute (5) C. difficile colitis: Code(s): A04.72 - Enterocolitis due to Clostridium difficile, not specified as recurrent Status: Acute Subjective Date/time seen: 01/03/22 17:45 Remained comfortable today. Review of Systems Review of Systems: ROS unobtainable: Yes unobtainable due to medical condition Exam Narrative: frail elderly female is mildly tachypneic but in no acute distress neck without JVD chest with coarse breath sounds scattered crackles heart regular rate mild tachycardia abdomen hypoactive bowel sounds mildly protuberant but soft and nontender extremities with bilateral mild edema of lower extremities musculoskeletal without gross deformity neurologic with grossly symmetric cranial nerves psychiatric opens eyes otherwise without response to verbal or tactile stimuli Objective Data Vital Signs Vital Signs: Vital Signs - 24 hr 01/02/22 20:00 01/02/22 20:00 01/03/22 08:00 Temperature 96.7 F L 96.6 F L Pulse Rate 51 L 61 Respiratory Rate 28 H 8 L Blood Pressure 106/52 L 120/93 H Pulse Oximetry 81 L 90 Oxygen Delivery Room Air 01/03/22 09:20 Temperature Pulse Rate Respiratory Rate Blood Pressure Pulse Oximetry Oxygen Delivery Room Air Intake/Output Intake/Output: Intake & Output 12/31/21 01/01/22 01/02/22 01/03/22 23:59 23:59 23:59 23:59 Intake Total 100 Output Total 250 Balance -150 Meds/Results Medications: Active Medications Generic Name Dose Route Start Last Admin Trade Name Freq PRN Reason Stop Dose Admin Artificial Tears 1 drop 01/01/22 16:05 Artificial Tears Ophth Soln 15 Ml Bottle EACH EYE QID PRN Dry Eye(s) Bisacodyl 10 mg 01/01/22 16:06 Bisacodyl 10 Mg Suppository RECTAL QAM PRN Constipation Diazepam 5 mg 01/01/22 16:04 Diazepam Inj (*Crx) 10 Mg/2 Ml Syringe IV PUSH Q4HR PRN Restless Glycopyrrolate 0.1 mg 01/02/22 13:00 01/03/22 13:05 Glycopyrrolate Inj (*Sp) 0.2 Mg/Ml Vial IV PUSH 0.1 mg Q4HR DORIE Administration Morphine Sulfate 50 mg/ Sodium 100 mls @ 2 mls/hr 01/01/22 16:30 01/02/22 22:22 Chloride IV CONT 1 mg/hr .Q24H DORIE 2 mls/hr Administration 1 MG/HR Morphine Sulfate 2 mg 01/01/22 16:03 Morphine Sulfate (*Crx) 2 Mg/Ml Inj IV PUSH Q2HR PRN Pain Prochlorperazine Edisylate 10 mg 01/01/22 16:05 Prochlorperazine Edisylate 10 Mg/2 Ml Vial IV PUSH Q6H PRN Nausea And Vomiting
[2022-01-03 20:00] VITALS: BP 99/55; PULSE 95; RESP 8; TEMP 35.8
[2022-01-03] MEDS: MORPHINE SULFATE INJ (*CRX) 50 MG in SODIUM CHLORIDE 0.9% IV 95 ML IV CONT (22:30)
[2022-01-04] MEDS: GLYCOPYRROLATE INJ (*SP) 0.2 MG/ML VIAL 0.1 MG IV PUSH ×4 (00:38→20:26)
[2022-01-04] MEDS: diazePAM INJ (*CRX) 10 MG/2 ML SYRINGE 5 MG IV PUSH ×2 (00:38→09:26)
[2022-01-04 09:40] VITALS: BP 87/49; PULSE 91; RESP 6; TEMP 35.8; O2SAT 88
[2022-01-04 20:00] VITALS: BP 99/47; PULSE 65; RESP 8; TEMP 30.3; O2SAT 92
[2022-01-04] MEDS: MORPHINE SULFATE INJ (*CRX) 50 MG in SODIUM CHLORIDE 0.9% IV 95 ML IV CONT (20:25)
[2022-01-05] MEDS: GLYCOPYRROLATE INJ (*SP) 0.2 MG/ML VIAL 0.1 MG IV PUSH ×4 (01:38→20:48)
[2022-01-05] MEDS: diazePAM INJ (*CRX) 10 MG/2 ML SYRINGE 5 MG IV PUSH (08:55)
[2022-01-05 09:18] VITALS: BP 77/48; PULSE 80; RESP 6; TEMP 35.9; O2SAT 60
--- NOTE | 2022-01-05 11:51 | P.PNIM_ITS ---
Progress Note: A&P Assessment and Plan (1) Palliative care encounter: Code(s): Z51.5 - Encounter for palliative care Status: Acute Assessment and Plan: * meet inpatient hospice criteria due to requiring continuous IV morphine for control of dyspnea and discomfort * remainder palliative regimen as ordered (2) Septic shock due to Clostridioides difficile: Code(s): A41.4 - Sepsis due to anaerobes; R65.21 - Severe sepsis with septic shock Status: Acute (3) Hypoxia: Code(s): R09.02 - Hypoxemia Status: Acute (4) Anemia: Code(s): D64.9 - Anemia, unspecified Status: Acute (5) C. difficile colitis: Code(s): A04.72 - Enterocolitis due to Clostridium difficile, not specified as recurrent Status: Acute Subjective Date/time seen: 01/05/22 11:51 Remains quiet and comfortable. Review of Systems Review of Systems: ROS unobtainable: Yes unobtainable due to medical condition Exam Narrative: Unresponsive to verbal stimuli. Breathing unlabored. Objective Data Vital Signs Vital Signs: Vital Signs - 24 hr 01/04/22 20:00 01/04/22 20:00 01/05/22 09:18 Temperature 86.6 F L 96.7 F L Pulse Rate 65 80 Respiratory Rate 8 L 6 L Blood Pressure 99/47 L 77/48 L Pulse Oximetry 92 60 L Oxygen Delivery Room Air 01/05/22 08:00 Temperature Pulse Rate Respiratory Rate Blood Pressure Pulse Oximetry Oxygen Delivery Room Air Intake/Output Intake/Output: Intake & Output 01/02/22 01/03/22 01/04/22 01/05/22 23:59 23:59 23:59 23:59 Intake Total 100 100 100 Output Total 250 Balance -150 100 100 Meds/Results Medications: Active Medications Generic Name Dose Route Start Last Admin Trade Name Freq PRN Reason Stop Dose Admin Artificial Tears 1 drop 01/01/22 16:05 Artificial Tears Ophth Soln 15 Ml Bottle EACH EYE QID PRN Dry Eye(s) Bisacodyl 10 mg 01/01/22 16:06 Bisacodyl 10 Mg Suppository RECTAL QAM PRN Constipation Diazepam 5 mg 01/01/22 16:04 01/05/22 08:55 Diazepam Inj (*Crx) 10 Mg/2 Ml Syringe IV PUSH 5 mg Q4HR PRN Administration Restless Glycopyrrolate 0.1 mg 01/02/22 13:00 01/05/22 08:55 Glycopyrrolate Inj (*Sp) 0.2 Mg/Ml Vial IV PUSH 0.1 mg Q4HR DORIE Administration Morphine Sulfate 50 mg/ Sodium 100 mls @ 2 mls/hr 01/01/22 16:30 01/04/22 20:25 Chloride IV CONT 1 mg/hr .Q24H DORIE 2 mls/hr Administration 1 MG/HR Morphine Sulfate 2 mg 01/01/22 16:03 Morphine Sulfate (*Crx) 2 Mg/Ml Inj IV PUSH Q2HR PRN Pain Prochlorperazine Edisylate 10 mg 01/01/22 16:05 Prochlorperazine Edisylate 10 Mg/2 Ml Vial IV PUSH Q6H PRN Nausea And Vomiting
[2022-01-05] MEDS: MORPHINE SULFATE INJ (*CRX) 50 MG in SODIUM CHLORIDE 0.9% IV 95 ML IV CONT (19:38)
[2022-01-05 20:00] VITALS: BP 132/100; PULSE 83; RESP 6; TEMP 28.7; O2SAT 82
[2022-01-06] MEDS: GLYCOPYRROLATE INJ (*SP) 0.2 MG/ML VIAL 0.1 MG IV PUSH ×2 (01:07→05:23)
[2022-01-06 08:12] VITALS: BP 77/55; PULSE 78; RESP 4; TEMP 35.7; O2SAT 91
[2022-01-06 20:00] VITALS: BP 101/67; PULSE 66; RESP 9; TEMP 27.8; O2SAT 77
--- NOTE | 2022-01-06 20:36 | P.PNIM_ITS ---
Progress Note: A&P Assessment and Plan (1) Palliative care encounter: Code(s): Z51.5 - Encounter for palliative care Status: Acute Assessment and Plan: * meet inpatient hospice criteria due to requiring continuous IV morphine for control of dyspnea and discomfort * remainder palliative regimen as ordered (2) Septic shock due to Clostridioides difficile: Code(s): A41.4 - Sepsis due to anaerobes; R65.21 - Severe sepsis with septic shock Status: Acute (3) Hypoxia: Code(s): R09.02 - Hypoxemia Status: Acute (4) Anemia: Code(s): D64.9 - Anemia, unspecified Status: Acute (5) C. difficile colitis: Code(s): A04.72 - Enterocolitis due to Clostridium difficile, not specified as recurrent Status: Acute Subjective Date/time seen: 01/06/22 20:36 Remains comfortable on morphine drip Review of Systems Review of Systems: ROS unobtainable: Yes unobtainable due to medical condition Exam Narrative: Unresponsive to verbal stimuli. Breathing unlabored. Objective Data Vital Signs Vital Signs: Vital Signs - 24 hr 01/06/22 08:12 01/06/22 08:00 01/06/22 20:00 Temperature 96.2 F L 82.0 F L Pulse Rate 78 66 Respiratory Rate 4 L 9 L Blood Pressure 77/55 L 101/67 Pulse Oximetry 91 77 L Oxygen Delivery Room Air Intake/Output Intake/Output: Intake & Output 01/03/22 01/04/22 01/05/22 01/06/22 23:59 23:59 23:59 23:59 Intake Total 100 100 100 Balance 100 100 100 Meds/Results Medications: Active Medications Generic Name Dose Route Start Last Admin Trade Name Freq PRN Reason Stop Dose Admin Artificial Tears 1 drop 01/01/22 16:05 Artificial Tears Ophth Soln 15 Ml Bottle EACH EYE QID PRN Dry Eye(s) Bisacodyl 10 mg 01/01/22 16:06 Bisacodyl 10 Mg Suppository RECTAL QAM PRN Constipation Diazepam 5 mg 01/01/22 16:04 01/05/22 08:55 Diazepam Inj (*Crx) 10 Mg/2 Ml Syringe IV PUSH 5 mg Q4HR PRN Administration Restless Glycopyrrolate 0.1 mg 01/02/22 13:00 01/06/22 16:49 Glycopyrrolate Inj (*Sp) 0.2 Mg/Ml Vial IV PUSH Not Given Q4HR DORIE Morphine Sulfate 50 mg/ Sodium 100 mls @ 2 mls/hr 01/01/22 16:30 01/05/22 19:38 Chloride IV CONT 1 mg/hr .Q24H DORIE 2 mls/hr Administration 1 MG/HR Morphine Sulfate 2 mg 01/01/22 16:03 Morphine Sulfate (*Crx) 2 Mg/Ml Inj IV PUSH Q2HR PRN Pain Prochlorperazine Edisylate 10 mg 01/01/22 16:05 Prochlorperazine Edisylate 10 Mg/2 Ml Vial IV PUSH Q6H PRN Nausea And Vomiting
[2022-01-06] MEDS: MORPHINE SULFATE INJ (*CRX) 50 MG in SODIUM CHLORIDE 0.9% IV 95 ML IV CONT (22:11)
[2022-01-07 07:30] VITALS: PULSE 66; RESP 9; O2SAT 77
[2022-01-07] MEDS: GLYCOPYRROLATE INJ (*SP) 0.2 MG/ML VIAL 0.1 MG IV PUSH ×4 (08:34→22:09)
[2022-01-07 17:00] VITALS: BP 0/0; PULSE 79; RESP 10; TEMP 28; O2SAT 87
--- NOTE | 2022-01-07 17:56 | P.PNIM_ITS ---
Progress Note: A&P Assessment and Plan (1) Palliative care encounter: Code(s): Z51.5 - Encounter for palliative care Status: Acute Assessment and Plan: * meet inpatient hospice criteria due to requiring continuous IV morphine for control of dyspnea and discomfort * remainder palliative regimen as ordered (2) Septic shock due to Clostridioides difficile: Code(s): A41.4 - Sepsis due to anaerobes; R65.21 - Severe sepsis with septic shock Status: Acute (3) Hypoxia: Code(s): R09.02 - Hypoxemia Status: Acute (4) Anemia: Code(s): D64.9 - Anemia, unspecified Status: Acute (5) C. difficile colitis: Code(s): A04.72 - Enterocolitis due to Clostridium difficile, not specified as recurrent Status: Acute Subjective Date/time seen: 01/07/22 17:56 Remains comfortable though hypothermic and hypotensive Review of Systems Review of Systems: ROS unobtainable: Yes unobtainable due to medical condition Exam Narrative: Unresponsive to verbal stimuli. Breathing unlabored. Objective Data Vital Signs Vital Signs: Vital Signs - 24 hr 01/06/22 20:00 01/06/22 20:00 01/07/22 07:30 Temperature 82.0 F L Pulse Rate 66 66 66 Respiratory Rate 9 L 9 L 9 L Blood Pressure 101/67 Pulse Oximetry 77 L 77 L 77 L Oxygen Delivery Room Air Nasal Cannula Oxygen Flow Rate 3 01/07/22 17:00 Temperature 82.4 F L Pulse Rate 79 Respiratory Rate 10 L Blood Pressure 0/0 L Pulse Oximetry 87 L Oxygen Delivery Oxygen Flow Rate Intake/Output Intake/Output: Intake & Output 01/04/22 01/05/22 01/06/22 01/07/22 23:59 23:59 23:59 23:59 Intake Total 100 100 100 0 Balance 100 100 100 0 Meds/Results Medications: Active Medications Generic Name Dose Route Start Last Admin Trade Name Freq PRN Reason Stop Dose Admin Artificial Tears 1 drop 01/01/22 16:05 Artificial Tears Ophth Soln 15 Ml Bottle EACH EYE QID PRN Dry Eye(s) Bisacodyl 10 mg 01/01/22 16:06 Bisacodyl 10 Mg Suppository RECTAL QAM PRN Constipation Diazepam 5 mg 01/01/22 16:04 01/05/22 08:55 Diazepam Inj (*Crx) 10 Mg/2 Ml Syringe IV PUSH 5 mg Q4HR PRN Administration Restless Glycopyrrolate 0.1 mg 01/02/22 13:00 01/07/22 13:00 Glycopyrrolate Inj (*Sp) 0.2 Mg/Ml Vial IV PUSH 0.1 mg Q4HR DORIE Administration Morphine Sulfate 50 mg/ Sodium 100 mls @ 2 mls/hr 01/01/22 16:30 01/06/22 22:11 Chloride IV CONT 1 mg/hr .Q24H DORIE 2 mls/hr Administration 1 MG/HR Morphine Sulfate 2 mg 01/01/22 16:03 Morphine Sulfate (*Crx) 2 Mg/Ml Inj IV PUSH Q2HR PRN Pain Prochlorperazine Edisylate 10 mg 01/01/22 16:05 Prochlorperazine Edisylate 10 Mg/2 Ml Vial IV PUSH Q6H PRN Nausea And Vomiting
[2022-01-07 20:00] VITALS: BP 112/75; PULSE 72; RESP 12; TEMP 29.7; O2SAT 93
[2022-01-07 21:50] VITALS: O2SAT 95
[2022-01-07] MEDS: MORPHINE SULFATE INJ (*CRX) 50 MG in SODIUM CHLORIDE 0.9% IV 95 ML IV CONT (21:59)
[2022-01-08] MEDS: GLYCOPYRROLATE INJ (*SP) 0.2 MG/ML VIAL 0.1 MG IV PUSH ×6 (00:44→21:11)
[2022-01-08 08:00] VITALS: BP 110/66; PULSE 70; RESP 12; TEMP 35.7; O2SAT 93; O2SAT 95
--- NOTE | 2022-01-08 19:59 | P.PNIM_ITS ---
Progress Note: A&P Assessment and Plan (1) Palliative care encounter: Code(s): Z51.5 - Encounter for palliative care Status: Acute Assessment and Plan: * meet inpatient hospice criteria due to requiring continuous IV morphine for control of dyspnea and discomfort * remainder palliative regimen as ordered (2) Septic shock due to Clostridioides difficile: Code(s): A41.4 - Sepsis due to anaerobes; R65.21 - Severe sepsis with septic shock Status: Acute (3) Hypoxia: Code(s): R09.02 - Hypoxemia Status: Acute (4) Anemia: Code(s): D64.9 - Anemia, unspecified Status: Acute (5) C. difficile colitis: Code(s): A04.72 - Enterocolitis due to Clostridium difficile, not specified as recurrent Status: Acute Subjective Date/time seen: 01/08/22 19:59 Remains comfortable and hypothermic Review of Systems Review of Systems: ROS unobtainable: Yes unobtainable due to medical condition Exam Narrative: Unresponsive to verbal stimuli. Breathing unlabored. Objective Data Vital Signs Vital Signs: Vital Signs - 24 hr 01/07/22 20:00 01/07/22 21:50 01/08/22 08:00 Temperature 85.4 F L Pulse Rate 72 Respiratory Rate 12 Blood Pressure 112/75 Pulse Oximetry 93 95 95 Oxygen Delivery Nasal Cannula Nasal Cannula Oxygen Flow Rate 3 3 01/08/22 08:00 Temperature 96.2 F L Pulse Rate 70 Respiratory Rate 12 Blood Pressure 110/66 Pulse Oximetry 93 Oxygen Delivery Oxygen Flow Rate Intake/Output Intake/Output: Intake & Output 01/05/22 01/06/22 01/07/22 01/08/22 23:59 23:59 23:59 23:59 Intake Total 100 100 100 Balance 100 100 100 Meds/Results Medications: Active Medications Generic Name Dose Route Start Last Admin Trade Name Freq PRN Reason Stop Dose Admin Artificial Tears 1 drop 01/01/22 16:05 Artificial Tears Ophth Soln 15 Ml Bottle EACH EYE QID PRN Dry Eye(s) Bisacodyl 10 mg 01/01/22 16:06 Bisacodyl 10 Mg Suppository RECTAL QAM PRN Constipation Diazepam 5 mg 01/01/22 16:04 01/05/22 08:55 Diazepam Inj (*Crx) 10 Mg/2 Ml Syringe IV PUSH 5 mg Q4HR PRN Administration Restless Glycopyrrolate 0.1 mg 01/02/22 13:00 01/08/22 16:42 Glycopyrrolate Inj (*Sp) 0.2 Mg/Ml Vial IV PUSH 0.1 mg Q4HR DORIE Administration Morphine Sulfate 50 mg/ Sodium 100 mls @ 2 mls/hr 01/01/22 16:30 01/07/22 21:59 Chloride IV CONT 1 mg/hr .Q24H DORIE 2 mls/hr Administration 1 MG/HR Morphine Sulfate 2 mg 01/01/22 16:03 Morphine Sulfate (*Crx) 2 Mg/Ml Inj IV PUSH Q2HR PRN Pain Prochlorperazine Edisylate 10 mg 01/01/22 16:05 Prochlorperazine Edisylate 10 Mg/2 Ml Vial IV PUSH Q6H PRN Nausea And Vomiting
[2022-01-08 20:00] VITALS: BP 64/19; PULSE 66; RESP 6; TEMP 27.4; O2SAT 81
[2022-01-08 21:50] VITALS: O2SAT 81
[2022-01-08] MEDS: MORPHINE SULFATE INJ (*CRX) 50 MG in SODIUM CHLORIDE 0.9% IV 95 ML IV CONT (21:50)
[2022-01-09] MEDS: GLYCOPYRROLATE INJ (*SP) 0.2 MG/ML VIAL 0.1 MG IV PUSH ×3 (00:02→09:01)
[2022-01-09 08:00] VITALS: BP 49/31; PULSE 53; RESP 6; TEMP 27.1; O2SAT 72
--- NOTE | 2022-01-09 16:42 | PM.DDS ---
Discharge Summary Probable Cause of Probable Cause of : sepsis Summary Hospital Course: Admitted to inpatient hospice service. Medications titrated to comfort. Mrs. Turner peacefully.
== END 2022-01-09 12:56 | disposition expired | DRG 951 ==
LOC: ANHICU 17:06 → ANH3MEDSUR 18:26
PROVIDERS: Admitting Provider Internal Medicine; PCP Internal Medicine; Visit Provider Internal Medicine
DX: Z51.5 Encounter for palliative care (principal); A41.4 Sepsis due to anaerobes; R65.21 Severe sepsis with septic shock; K55.059 Acute (reversible) ischemia of intestine, part and extent unspecified; A04.72 Enterocolitis due to Clostridium difficile, not specified as recurrent; R09.02 Hypoxemia; D64.9 Anemia, unspecified; E11.9 Type 2 diabetes mellitus without complications; F03.90 Unspecified dementia, unspecified severity, without behavioral disturbance, psychotic disturbance, mood disturbance, and anxiety; F41.9 Anxiety disorder, unspecified; I48.91 Unspecified atrial fibrillation; I10 Essential (primary) hypertension; Z66 Do not resuscitate
CPT/HCPCS: A9270; J0780; J2270; J3360